=== PATIENT | female | born 1955 | race Caucasian/White ===

== ENCOUNTER 2024-03-30 09:03 | Outpatient (CLI) | payer MEDICARE, BC, SELFPAY ==
--- NOTE | 2024-03-30 09:39 | P.ANES_ITS ---
Anesthesia Charges Start Date/Time Anesthesia Start Date: 03/30/24 Anesthesia Start Time: 09:55 Stop Date/Time Anesthesia Stop Date: 03/30/24 Anesthesia Stop Time: 10:28 Summary Extremes of Age - Over 70 or under 1: [employer]
--- NOTE | 2024-03-30 11:30 | W.ANESCHARGE ---
Anesthesia Charges Start Date/Time Anesthesia Start Date: 03/30/24 Anesthesia Start Time: 09:55 Stop Date/Time Anesthesia Stop Date: 03/30/24 Anesthesia Stop Time: 10:28 Summary Extremes of Age - Over 70 or under 1: MDA
== END 2024-03-30 09:04 | disposition home or self-care (01) ==
LOC: OP CLINIC 09:07
PROVIDERS: PCP Family Medicine; Visit Provider Internal Medicine Gastroenterology
DX: Z12.11 Encounter for screening for malignant neoplasm of colon (principal); K51.50 Left sided colitis without complications; D12.2 Benign neoplasm of ascending colon; K51.30 Ulcerative (chronic) rectosigmoiditis without complications
CPT/HCPCS: 00811; 45380; 45385; 88305; 88342; 99100; J2405; J2704

== ENCOUNTER 2024-04-19 09:44 | Day surgery (SDC) | payer MEDICARE, BC, SELFPAY ==
[2024-04-19] VITALS (25 sets, daily range): BP systolic 90–132; BP diastolic 51–70; PULSE 55–78; RESP 14–20; TEMP 35.8–36.8; O2SAT 91–98; BMI 27.0
--- OUTSIDE RECORDS SUMMARY | 2024-04-19 09:47 | XMS_ITS | Clinical Summary ---
Author Organization [facility] Address [place], [place] [address] Care Team Providers Care Gymnastics Instructor Name Role Phone Yadira Larios Primary Care Provider Allergies Active Allergy Reactions Criticality Noted Date Comments Indomethacin Other - Describe In Comment Field 10/01/2022 vertigo Mesalamine Angioedema 08/04/2018 Medications pantoprazole (PROTONIX) 40 mg delayed-release tabletIndications:G astroesophageal reflux disease, unspecified whether esophagitis present Take 1 Tablet (40 mg) by mouth once daily. 90 Tablet 3 024 Active budesonide (Entocort EC) 3 mg capsuleIndications: Diarrhea, unspecified type,Ulcerative rectosigmoiditis with rectal bleeding (HC),Rectal bleeding,Hematochez ia Take 3 Capsules (9 mg) by mouth once daily in the morning. 90 Capsule 5 024 Active CHOLECALCIFEROL, VITAMIN D3, ORAL Take 1 Tablet by mouth once daily. Active acetaminophen (TYLENOL EXTRA STRGTH) 500 mg tabletIndications:C losed displaced comminuted fracture of shaft of left humerus, initial encounter Take 2 Tablets (1,000 mg) by mouth three times daily. Max acetaminophen dose: 4000mg in 24 hrs. Active ibuprofen (ADVIL; MOTRIN) 200 mg tabletIndications:C losed displaced comminuted fracture of shaft of left humerus, initial encounter Take 3 Tablets (600 mg) by mouth three times daily with meals. For 3 days then as needed for pain Active hydrOXYzine pamoate (VistariL) 25 mg capsuleIndications: Closed displaced comminuted fracture of shaft of left humerus, initial encounter Take 1 Capsule (25 mg) by mouth every 4 hours if needed (pain/nausea). 15 Capsule 025 Active traMADoL (ULTRAM) 50 mg tabletIndications:C losed displaced comminuted fracture of shaft of left humerus, initial encounter Take 1-2 Tablets (50-100 mg) by mouth 3 times daily if needed for Pain. Use 50 mg three times daily for 3 days with extra 50 mg three times daily as needed for pain (max 100 mg three times daily), then take 50-100 mg three times daily as needed for pain. 30 Tablet 025 Active ascorbic acid CR (VITAMIN C) 500 mg Extended-Release tablet Take 500 mg by mouth once daily. 2023 Discontinued (Pharmacist change per medication history (E-cancel not sent)) ergocalciferol, vitamin D2, (VITAMIN D2 ORAL) Take 1 Tablet by mouth once daily. 2023 Discontinued (Pharmacist change per medication history (E-cancel not sent)) predniSONE (DELTASONE) 10 mg tabletIndications:H ematochezia,Ulcerat goran rectosigmoiditis with rectal bleeding (HC) Take 1 Tablet (10 mg) by mouth once daily with a meal. take 4 tablets by oral route once daily for 2 weeks, 3 tablets per day for 1 week, 2 tablets per day for 1 week, 1 tablet per day for 1 week 98 Tablet 024 2023 Discontinued (Reorder (E-cancel not sent)) scopolamine 1mg over 3 days (TRANSDERM SCOP) patchIndications:Mo tion sickness, initial encounter Apply 1 Patch on dry, clean, hairless skin every 72 hours. 5 Patch 024 2023 Discontinued (*Med complete/Reg imen complete/Lev el of care change) psyllium (MetamuciL) 0.4 gram capsule Take 1 Capsule by mouth once daily. 2023 Discontinued (Pharmacist change per medication history (E-cancel not sent)) predniSONE (DELTASONE) 10 mg tabletIndications:U lcerative rectosigmoiditis with rectal bleeding (HC),Hematochezia Take 1 Tablet (10 mg) by mouth once daily with a meal. take 4 tablets by oral route once daily for 2 weeks, 3 tablets per day for 1 week, 2 tablets per day for 1 week, 1 tablet per day for 1 week 98 Tablet 024 2023 Discontinued (Pharmacist change per medication history (E-cancel not sent)) polyethylene glycol-electrolyte (GOLYTELY) 236-22.74-6.74 -5.86 gram suspensionIndicatio ns:Diarrhea, unspecified type,Ulcerative rectosigmoiditis with rectal bleeding (HC),Rectal bleeding Drink 2 liters (half the bottle) the day before colonoscopy and 2 liters (remaining prep) 6 hours prior to colonoscopy appointment. 4000 mL 024 2023 Discontinued (Pharmacist change per medication history (E-cancel not sent)) ascorbic acid, vitamin C, (VITAMIN C) 500 mg tablet Take 500 mg by mouth once daily. 2024 Discontinued (*Med complete/Reg imen complete/Lev el of care change) traMADoL (ULTRAM) 50 mg tabletIndications:C losed displaced comminuted fracture of shaft of left humerus, initial encounter Take 1-2 Tablets (50-100 mg) by mouth 3 times daily if needed for Pain. Use 50 mg three times daily for 3 days with extra 50 mg three times daily as needed for pain (max 100 mg three times daily), then take 50-100 mg three times daily as needed for pain. 30 Tablet 04/10/20 24 7:37 PM [facility] 2024 Discontinued (Reorder (E-cancel not sent)) hydrOXYzine pamoate (VistariL) 25 mg capsuleIndications: Closed displaced comminuted fracture of shaft of left humerus, initial encounter Take 1 Capsule (25 mg) by mouth every 4 hours if needed (pain/nausea). 15 Capsule 04/10/20 24 7:37 PM [facility] 024 2024 Discontinued (Reorder (E-cancel not sent)) Active Problems Problem Noted Date Diagnosed Date Displaced fracture of left humerus 04/08/2024 Squamous cell carcinoma of leg, left 10/26/2023 Age-related osteoporosis wit hout current pathological fracture 10/26/2023 Gastroesophageal reflux disease 10/26/2023 History of adenomatous polyp of colon 11/12/2017 Overview (02/17/2018): Overview: Found inside her appendix on 08/10/2016. 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 [address] [place] [address] Cristiana Cox RN Questions 04/17/2024 Telephone [facility] [address] [place] [address] Shilpa Meza, Preoperative Exam (addendum.) 04/16/2024 1:50 PM [facility] Office Visit [facility] [address] [place] [address] Shilpa Meza DO [facility] F/U; Preoperative Exam (shoulder fracture) 04/16/2024 Travel 04/13/2024 Hospital[facility] Telephone Encounter [facility] [address] [place] [address] Cristiana Cox, RN Pre Procedure 04/12/2024 Patient Outreach [facility] [address] [place] [address] Lili Mujica, HEIDY [facility] F/U; Primary RN Care Management (LACE 51) 04/12/2024 Travel 04/08/2024 7:17 AM [facility] - 04/10/2024 12:45 PM [facility] Hospital Encounter [facility] [address] [place] [address] Robert Damico MD McCosh, Yee Morales, DO Tolbert, Pancho Aranda, DO Hines, Phu Willis, YOLY Closed displaced comminuted fracture of shaft of left humerus, initial encounter (Primary Dx) Discharge Disposition: Home Self Care 04/08/2024 Travel 04/06/2024 8:55 AM [facility] - 04/06/2024 11:59 PM [facility] Hospital Encounter [facility] [address] [place] [address] Chronic ulcerative rectosigmoiditis without complications (HC) (Primary Dx) 04/06/2024 Travel 03/30/2024 9:15 AM [facility] Office Visit [facility] at [facility] [address] [place] [address] Pierce Spain MD 03/30/2024 Lab Requisition [facility] [phone] Pierce Spain MD 03/30/2024 Telephone [facility] [address] [place] [address] Cristiana Cox, RN Appointment 03/28/2024 Telephone [facility] [address] [place] [address] Pierce Spain MD Questions (Infusion ) 03/26/[address] [address] Pierce Spain MD Prior Authorization (budesonide (Entocort EC) 3 mg capsule APPROVED from 03/12/2024 until further notice. ) 03/23/[address] [address] Brittney Cee, AGENTS' RECORDS CLERK Appointment 03/22/2024 10:30 AM [facility] Office Visit [address] [place] [address] Pierce Spain MD Follow Up (Symptoms continue, prednisone helped for a short time) 03/22/2024 9:20 AM [facility] Ancillary Procedure [address] [place] [address] 03/22/[address] [address] Pierce Spain MD Appointment 03/22/[address] [address] Pierce Spain MD Medication Management 03/22/2024 Travel 03/17/2024 Travel 01/31/2024 8:30 AM CDT Orders Only [address] [address] [facility], [facility] 01/31/2024 8:00 AM CDT Ancillary Procedure [address] [address] 01/30/2024 Travel 01/30/2024 Orders Only [address] [address] Pierce Spain MD <No scans attached> from Last 3 Months Immunizations Name Administration Dates Next Due Influenza, IIV4 02/03/2023 Influenza, Inactivated AIIV4 (Age 65+ Years) Preserv Free 07/13/2022 Td (Age >=7 Years) 01/18/1989 Tdap 02/16/2008 Family History Medical History Relation Name Comments Parkinsonism Brother Good Health Daughter Osteoarthritis Half-Brother Multiple sclerosis Half-Sister 1 Good Health Half-Sister 2 Good Health Half-Sister 3 Cancer-breast Maternal Aunt Unknown Maternal Grandfather Unknown Maternal Grandmother Brain cancer Mother Multiple sclerosis Mother Asthma Paternal Grandfather Dementia Paternal Grandfather Unknown Paternal Grandmother Relation Name Status Comments Brother Alive Daughter Alive Father (Age 20) Gunshot wo und Half-Brother Alive Half-Sister 1 Alive Half-Sister 2 Alive Half-Sister 3 Alive Maternal Aunt Maternal Grandfather Maternal Grandmother Mother (Age 66) Brain tumo r Paternal Grandfather Paternal Grandmother Social History Tobacco Use Types Packs/Day Years Used Date Smoking Tobacco: Never Smokeless Tobacco: Never Tobacco Cessation:Counseling Given: Yes Alcohol Use Standard Drinks/Week Comments Yes 0 (1 standard drink = 0.6 oz pur e alcohol) occasionally C Utilities Answer Date Recorded Do you have trouble paying f or utilities (for example, heat, electricity, water, phone)? Yes 04/08/2024 PHQ-2 Answer Date Recorded PHQ-2 TOTAL SCORE 0 10/26/2023 Social Connections Answer Date Recorded Do you often feel lonely or isolated from those around you? 0 04/08/2024 Financial Resource Strain Answer Date R ecorded Difficulty of Paying Living Expenses 3 04/27/2023 Difficulty of Paying Living Expenses Not on file 04/27/2023 Food Insecurity Answer Date Recorded Do you worry your food will run out before you are able to buy more? 1 04/08/2024 Transportation Needs Answer Date Record ed Does lack of transportation keep you from medica l appointments? 1 04/08/2024 Does lack of transportation keep you from work, meetings or getting things that you need? 1 04/08/2024 Housing Stability Answer Date Recorded What is your housing situation today? 1 04/08/2024 Interpersonal Safety Answer Date Record ed Are you being hit, kicked, p ushed or yelled at (see row info)? No 04/08/2024 Interpersonal Safety Abuse 12 - 18 Not on file 04/08/2024 Interpersonal Safety Ambulatory Vulnerability No t on file 04/08/2024 Comments No Sex and Gender Information Value Date Recorded Sex Assigned at Female 04/08/2024 7:36 AM [facility] Legal Sex Female 5:23 AM [facility] Gender Identity Female 04/08/2024 7:36 AM [facility] Sexual Orientation Straight 04/08/2024 7: 36 AM [facility] Obstetrics History Last Filed Vital Signs Vital Sign Reading Time Taken Comments Blood Pressure 111/74 04/16/2024 2:07 PM [facility] Pulse 74 04/16/2024 2:07 PM [facility] Temperature 36.7 C (98.1 F) 04/10/2024 9:36 AM [facility] Respiratory Rate 18 04/10/2024 9:36 AM [facility] Oxygen Saturation 98% 04/16/2024 2:07 PM [facility] Inhaled Oxygen Concentration - - Weight 75.9 kg (167 lb 6.4 oz) 04/16/2024 2:07 P M [facility] Height 167.6 cm (5' 6) 04/08/2024 3:13 PM [facility] Body Mass Index 27.02 04/08/2024 3:13 PM [facility] Plan of Treatment Upcoming Encounters Date Type Department Care Team (Late st Contact Info) Description 04/24/2024 9:00 AM [facility] Appointment [facility] [address] [place] [address] 05/22/2024 9:00 AM [facility] [facility] Appointment [facility] [address] [place] [address] Health Maintenance Due Date Last Done Comments Hepatitis C screening for age 18-79 08/19/1971 Zoster (shingles) series for age 50+ (1 of 2) 1972 Pneumococcal series for age 50+ (1 of 1 - PCV) 08/19/2003 RSV vaccine for adults or (1 - Risk 60-74 years 1-dose series) 2013 Tetanus booster 02/15/2018 02/16/2008, 01/18/1989 COVID-19 vaccine series ( season) 2023 04/07/2021, 02/04/2021 Influenza for age 65+ 12/11/2023 02/03/2023, 023 BMI (ht and wt on same day) for age 18+ 10/25/2024 10/26/2023, 04/21/2020, 02/17/2018 Depression screening for age 12+ 10/25/2024 10/26/2023, 10/26/2023, 03/08/2023 Medicare Wellness for age 65+ 10/26/2024 10/26/2023, 10/01/2022 (Verified in Care Everywhere or Patient Record) Mammogram for age 45-75 03/22/2025 03/22/20 24, 03/17/2023 (Verified in Care Everywhere or Patient Record), 02/03/2021, Additional history exists Colonoscopy through age 75 03/30/202703/30, 03/30/2024, 03/30/2024, Additional history exists Lipids for age 45-75 10/25/2028 10/26/2023, 04/09/20 Tdap Completed 02/16/2008 DEXA/DXA scan for age 65+ Addressed 2021 (Verified in Care Everywhere or Patient Record) Overridden with the intention of not completing the topic Medical Devices Implanted Type Area Line Out Man Device Identifier Shelf Expiration Date Model / Serial / Lot Screw Bone 3.0x16mm Mini Headed - [id number] Implanted:Qty: 1 on 10/09/2019 by Priyank Bobby DPM at [facility] Right: Foot [employer] [id number] / / Explanted Type Area Line Out Man Device Identifier Shelf Expiration Date Model / Serial / Lot Screw Bone 2.5x14mm [place] Headed - [id number] Explanted:Qty: 1 on 10/09/2019 by Priyank Bobby DPM at [facility] Right: Foot [employer] [id number] / / Screw Bone 2.5x16mm Mini Headed - [id number] Explanted:Qty: 1 on 10/09/2019 by Priyank Bobby DPM at [facility] Right: Foot [employer] [id number] / / K-Wire 2.5mm Non-Thrd Diameter0.9 Mm - [id number] Explanted:Qty: 3 on 10/09/2019 by Priyank Bobby DPM at [facility] Right: Foot [employer] [id number] / / Wire Kirs .[id number] Smoothx6/Pk - [id number] Explanted:Qty: 1 on 10/09/2019 by Priyank Bobby DPM at [facility] / / Procedures Procedure Name Priority Date/Time Associated Diagnosis Comments CBC WITH AUTO DIFFERENTIAL STAT 04/08/2024 9:56 AM [facility] HEPATIC FUNCTION PANEL STAT 04/08/2024 9:56 AM [facility] BASIC METABOLIC PANEL STAT 04/08/2024 9:56 AM [facility] CBC WITH AUTO DIFFERENTIAL STAT 04/08/2024 9:[address] [address] HEAD BRAIN WO STAT 04/08/2024 8:20 AM [facility] XR SHOULDER 2 VIEWS LEFT STAT 04/08/2024 8:20 AM [facility] LAB TRACKING EVENT Routine 03/30/2024 10 :04 AM [facility] PATH TISSUE EXAM Routine 03/30/2024 10:0 4 AM [facility] COLONOSCOPY SCREENING Routine 03/30/2024 12:00 AM [facility] Diarrhea, unspecified type Ulcerative rectosigmoiditis with rectal bleeding (HC) Rectal bleeding QUANTIFERON -TB GOLD PLUS 1 TUBE (QUEST) Routine 03/22/2024 11:11 AM [facility] [facility] Diarrhea, unspecified type Ulcerative rectosigmoiditis with rectal bleeding (HC) Rectal bleeding Hematochezia HBSAG (HBS) Routine 03/22/2024 11:11 AM [facility] [facility] Diarrhea, unspecified type Ulcerative rectosigmoiditis with rectal bleeding (HC) Rectal bleeding Hematochezia Need for hepatitis B screening test ANTI HBS QUANT AHS Routine 03/22/2024 11 :11 AM [facility] [facility] Diarrhea, unspecified type Ulcerative rectosigmoiditis with rectal bleeding (HC) Rectal bleeding Hematochezia Need for hepatitis B screening test XR MAMMO RYAN BILAT SCREEN Routine 03/22/2024 9:38 AM [facility] Encounter for screening mammogram for malignant neoplasm of breast CT ABDOMEN PELVIS W Routine 01/31/2024 8 :23 AM CDT Ulcerative rectosigmoiditis with rectal bleeding (HC) LLQ pain CREATININE,ISTAT Routine 01/31/2024 8:02 AM CDT Observation or evaluation for suspected condition LIPID PANEL W REFLEX MEASURED LDL Routine 10/26/2023 1:59 PM CDT Screening cholesterol level from Last 3 Months or Most Recently Relevant to Health Maintenance Results * (ABNORMAL) CBC WITH AUTO DIFFERENTIAL (04/08/2024 9:56 AM [facility]) WHITE BLOOD COUNT 10.3 4.5 - 11.0 thou/cu mm 04/08/2024 10:02 AM [facility] RED BLOOD COUNT 4.00 4.00 - 5.20 mil/cu mm 04/08/2024 10:02 AM [facility] HEMOGLOBIN 12.4 12.0 - 16.0 g/dL 04/08/2024 10:02 AM [facility] HEMATOCRIT 36.7 33.0 - 51.0 % 04/08/2024 10:02 AM [facility] MCV 92 80 - 100 fL 04/08/2024 10:02 AM [facility] MCH 31.0 26.0 - 34.0 pg 04/08/2024 10:02 AM [facility] MCHC 33.8 32.0 - 36.0 g/dL 04/08/2024 10:02 AM [facility] RDW 12.3 11.5 - 15.5 % 04/08/2024 10:02 AM [facility] PLATELET COUNT 279 140 - 440 thou/cu mm 04/08/2024 10:02 AM [facility] MPV 8.6 6.5 - 11.0 fL 04/08/2024 10:02 AM [facility] % NEUT 78.5 % 04/08/2024 10:02 AM [facility] % LYMPH 11.5 % 04/08/2024 10:02 AM [facility] % MONO 9.7 % 04/08/2024 10:02 AM [facility] % EOS 0.2 % 04/08/2024 10:02 AM [facility] % BASO 0.1 % 04/08/2024 10:02 AM [facility] ABSOLUTE NEUTROPHILS 8.1(H) 1.7 - 7.0 thou/cu mm 04/08/2024 10:02 AM [facility] ABSOLUTE LYMPHOCYTES 1.2 0.9 - 2.9 thou/cu mm 04/08/2024 10:02 AM [facility] ABSOLUTE MONOCYTES 1.0(H) <0.9 thou/cu mm 04/08/2024 10:02 AM [facility] ABSOLUTE EOSINOPHILS 0.0 <0.5 thou/cu mm 04/08/2024 10:02 AM [facility] ABSOLUTE BASOPHILS 0.0 <0.3 thou/cu mm 04/08/2024 10:02 AM [facility] Blood BLOOD SPECIMEN / Unknown Venipuncture / Unknown 04/08/2024 9:56 AM [facility] 04/08/2024 9:59 AM [facility] us Robert Damico MD HEMATOLOGY Final Result [facility] [address] [place] [id number] * (ABNORMAL) HEPATIC FUNCTION PANEL (04/08/2024 9:56 AM [facility]) ALBUMIN 3.9(L) 4.0 - 4.9 g/dL 04/08/2024 10:19 AM [facility] PROTEIN,TOTAL 6.8 6.0 - 8.0 g/dL 04/08/2024 10:19 AM [facility] BILIRUBIN,TOTAL 0.5 0.0 - 1.2 mg/dL 04/08/2024 10:19 AM [facility] BILIRUBIN,DIRECT 0.2 0.0 - 0.2 mg/dL 04/08/2024 10:19 AM [facility] BILIRUBIN,INDIRE CT 0.3 0.2 - 0.8 mg/dL 04/08/2024 10:19 AM [facility] ALK PHOSPHATASE 69 35 - 104 IU/L 04/08/2024 10:19 AM [facility] ALT (SGPT) 11 10 - 35 IU/L 04/08/2024 10:19 AM [facility] AST (SGOT) 16 10 - 35 IU/L 04/08/2024 10:19 AM [facility] Blood BLOOD SPECIMEN / Unknown Venipuncture / Unknown 04/08/2024 9:56 AM [facility] 04/08/2024 9:59 AM [facility] us Robert Damico MD CHEMISTRY Final Result [facility] [address] [place] [address] * (ABNORMAL) BASIC METABOLIC PANEL (04/08/2024 9:56 AM [facility]) SODIUM 135(L) 136 - 145 mmol/L 04/08/2024 10:19 AM [facility] POTASSIUM 4.3 3.5 - 5.1 mmol/L 04/08/2024 10:19 AM [facility] CHLORIDE 101 98 - 107 mmol/L 04/08/2024 10:19 AM [facility] CO2,TOTAL 23 22 - 29 mmol/L 04/08/2024 10:19 AM [facility] ANION GAP 11 5 - 18 04/08/2024 10:19 AM [facility] GLUCOSE 118(H) 70 - 99 mg/dL 04/08/2024 10:19 AM [facility] CALCIUM 9.0 8.8 - 10.4 mg/dL 04/08/2024 10:19 AM [facility] Comment: Reference ranges for this test were updated on 02/14/2024 to reflect our healthy population more accurately. Reference range changes are not retroactively applied to results, but previous results using the same methodology can be interpreted in the context of the new reference range. BUN 9 8 - 23 mg/dL 04/08/2024 10:19 AM [facility] CREATININE 0.65 0.50 - 0.90 mg/dL 04/08/2024 10:19 AM [facility] BUN/CREAT RATIO 14 10 - 20 10:19 AM [facility] eGFR >90 >90 mL/min/1. 73m2 04/08/2024 10:19 AM [facility] Comment:As of 2021, eG FR is calculated by the CKD-EPI creatinine equation without race adjustment. eGFR can be influenced by muscle mass, exercise, and diet. The reported eGFR is an estimation only and is only applicable if the renal function is stable. Blood BLOOD SPECIMEN / Unknown Venipuncture / Unknown 04/08/2024 9:56 AM [facility] 04/08/2024 9:59 AM [facility] Robert Damico MD CHEMISTRY Final Result [facility] [address] [place] [address] * CT HEAD BRAIN WO (04/08/2024 8:20 AM [facility]) Anatomical Region Laterality Modality HEAD, BRAIN Computed Tomogra phy 04/08/2024 8:26 AM [facility] Impressions 04/08/2024 8:26 AM [facility] 1. No radiographic evidence of acute intracranial abnormalities. Please note that all CT scans at this facility use dose modulation, iterative reconstruction, and/or weight-based dosing when appropriate to reduce radiation dose to as low as reasonably achievable. Dictated by Sylvester Avina MD @ 04/08/2024 8:26:38 AM (Electronically Signed) Narrative 04/08/2024 8:26 AM [facility] For Patients: As a result of the 21st Century Cures Act, medical imaging exams and procedure reports are released immediately into your electronic medical record. You may view this report before your referring provider. If you have questions, please contact your health care provider. INDICATION: Headache. Trauma. TECHNIQUE: Non-contrast CT of the head is submitted. No comparisons. FINDINGS: The ventricles, sulci and gyri are of normal size, shape and contour. Midline structures are centrally located. No convincing evidence of intra- or extra-axial fluid collections. Procedure Note [employer], - 04/08/2024 For Patients: As a result of the Cures Act, medical imagingexams and procedure reports are released immediately into your electronicmedical record. You may view this report before your referring provider.If you have questions, please contact your health care provider. INDICATION: Headache. Trauma. TECHNIQUE: Non-contrast CT of the head is submitted. No comparisons. FINDINGS: The ventricles, sulci and gyri are of normal size, shape and contour.Midline structures are centrally located. No convincing evidence ofintra- or extra-axial fluid collections. IMPRESSION: 1. No radiographic evidence of acute intracranial abnormalities. Please note that all CT scans at this facility use dose modulation,iterative reconstruction, and/or weight-based dosing when appropriate toreduce radiation dose to as low as reasonably achievable. Dictated by Sylvester Avina MD @ 04/08/2024 8:26:38 AM (Electronically Signed) Sohail Graham MD CT Final R esult * XR SHOULDER 2 VIEWS LEFT (04/08/2024 8:20 AM [facility]) Anatomical Region Laterality Modality SHOULDERS, SHOULDER L Digital Ra diography 04/08/2024 8:29 AM [facility] Impressions 04/08/2024 8:29 AM [facility] Displaced humeral neck fracture. Dictated by Dave Marinelli MD @ 04/08/2024 8:29:35 AM (Electronically Signed) Narrative 04/08/2024 8:29 AM [facility] For Patients: As a result of the Cures Act, medical imaging exams and procedure reports are released immediately into your electronic medical record. You may view this report before your referring provider. If you have questions, please contact your health care provider. INDICATION: Trauma. TECHNIQUE: Left shoulder two views. COMPARISON: None. FINDINGS: Comminuted displaced fracture of the left humeral neck with near complete width anterior and medial displacement of the distal humerus relative to the humeral head. No additional evidence of fracture. Degenerative changes of the acromioclavicular joint. No radiopaque foreign body evident in the soft tissues. Procedure Note Dave Marinelli, DO - 04/08/2024 For Patients: As a result of the Cures Act, medical imagingexams and procedure reports are released immediately into your electronicmedical record. You may view this report before your referring provider.If you have questions, please contact your health care provider. INDICATION: Trauma. TECHNIQUE: Left shoulder two views. COMPARISON: None. FINDINGS: Comminuted displaced fracture of the left humeral neck with near completewidth anterior and medial displacement of the distal humerus relative tothe humeral head. No additional evidence of fracture. Degenerative changesof the acromioclavicular joint. No radiopaque foreign body evident in thesoft tissues. IMPRESSION: Displaced humeral neck fracture. Dictated by Dave Marinelli MD @ 04/08/2024 8:29:35 AM (Electronically Signed) us Sohail Graham MD GENERAL IMAGING Final R esult * LAB TRACKING EVENT (03/30/2024 10:04 AM [facility]) Other (Other) Client Collect / Unknown 03/30/2024 10:04 AM [facility] 03/30/2024 10:18 PM [facility] us Pierce Spain MD LAB BILL ONLY Final Res ult [facility] [address] [place] [address], * PATH TISSUE EXAM (03/30/2024 10:04 AM [facility]) Case Report Pathology Report Case: [id number] Authorizing Provider: Pierce Spain MD Collected: 03/30/2024 1004 Ordering Location: [facility] Received: 04/02/2024 0740 Pathologist: Dave Valle MD Specimens: A) - Ascending Colon Polyp B) - Ascending Colon Biopsy C) - Transverse Colon Polyp D) - Descending Colon Polyp E) - Recto Sigmoid 04/05/2024 11:52 AM [facility] Amendment 04/05/2024 - Report updated to incorporate CMV immunohistochemistry, see final diagnosis. 04/05/2024 11:52 AM [facility] Final Diagnosis A) COLON, ASCENDING, POLYPECTOMY: 1. Tubular adenoma 2. Negative for high grade dysplasia 3. Per the colonoscopy report: a. Polyp size: 4 mm b. Resection: Complete c. Retrieval: Complete B) COLON, ASCENDING, BIOPSY: 1. Colonic mucosa with no diagnostic abnormalities 2. Negative for microscopic, active, and chronic colitis 3. Negative for dysplasia C) COLON, TRANSVERSE, BIOPSY: 1. Colonic mucosa with no diagnostic abnormalities 2. Negative for microscopic, active, and chronic colitis 3. Negative for dysplasia D) COLON, DESCENDING, BIOPSY: 1. Colonic mucosa with no diagnostic abnormalities 2. Negative for microscopic, active, and chronic colitis 3. Negative for dysplasia E) COLON, RECTOSIGMOID, BIOPSY: 1. Mild to moderately active chronic colitis consistent with ulcerative colitis 2. Negative for dysplasia 3. Cytomegalovirus (CMV) immunohistochemical stains (performed on blocks E1 and E2): Negative 04/05/2024 11:52 AM [facility] Amendment electronically signed by Omega Quan MD on 04/05/2024 at 11:52 AM Clinical Information 68-year-old female undergoes high risk colon cancer surveillance for history of left-sided ulcerative colitis of 8 (or more) years duration. On exam, a 4 mm polyp was identified in the ascending colon. Inflammation was found from the anus to the sigmoid colon, which was graded as Petty score 2 (moderate disease). The exam was otherwise normal. 04/05/2024 11:52 AM [facility] Gross Description A) Received in formalin is a mon mucosal fragment measuring 4 mm in greatest dimension, which is entirely submitted in one cassette. It is labeled with the patient's name and designated ascending colon polyp. B) Received in formalin are 7 mon mucosal fragments ranging from 2 mm to 5 mm in greatest dimension, which are entirely submitted in one cassette. It is labeled with the patient's name and designated ascending colon. C) Received in formalin are 8 mon mucosal fragments averaging 2 mm in greatest dimension, which are entirely submitted in one cassette. It is labeled with the patient's name and designated transverse colon. D) Received in formalin are 7 mon mucosal fragments averaging 3 mm in greatest dimension, which are entirely submitted in one cassette. It is labeled with the patient's name and designated descending colon. E) Received in formalin are 12 mon mucosal fragments averaging 2 mm in greatest dimension, which are entirely submitted in 2 cassettes. It is labeled with the patient's name and designated rectosigmoid colon. Vinay Starks 04/02/2024 7:58 AM 04/05/2024 11:52 AM [facility] Microscopic Description The final diagnosis is based on microscopic examination of appropriate sections of all specimens. 04/05/2024 11:52 AM [facility] Additional Information Interpreted at [facility] - [address], [place] [address] Immunohistochemistry controls were reviewed and approved by the pathologist during this examination. 04/05/2024 11:52 AM [facility] Other SPECIMEN FROM COLON / Unknown 03/30/2024 10:04 AM [facility] 04/02/2024 7:40 AM [facility] Specimen (specimen) (Ascending Colon Biopsy) 03/30/2024 10:04 AM [facility] 04/02/2024 7:40 AM [facility] Specimen (specimen) (Transverse Colon Polyp) 03/30/2024 10:04 AM [facility] 04/02/2024 7:40 AM [facility] Specimen (specimen) (Descending Colon Polyp) 03/30/2024 10:04 AM [facility] 04/02/2024 7:40 AM [facility] Specimen (specimen) SPECIMEN FROM COLON / Unknown 03/30/2024 10:04 AM [facility] 04/02/2024 7:40 AM [facility] Pierce Spain MD PATHOLOGY/CYTOLOGY Edited Result - Final [facility] [address] [address], [place] * COLONOSCOPY SCREENING (03/30/2024 12:00 AM [facility]) Pierce Spain MD GI PROCEDURE ORD Edited R esult - Final * QUANTIFERON??-TB GOLD PLUS 1 TUBE ([facility]) (03/22/2024 11:11 AM [facility]) QUANTIFERON(R)-T B GOLD PLUS, 1 TUBE NEGATIVE NEGATIVE [facility] Comment: Negative test result. M. tuberculosis complex infection unlikely. NIL 0.03 IU/mL [facility] MITOGEN-NIL 8.18 IU/mL [facility] TB1-NIL 0.02 IU/mL [facility] TB2-NIL 0.01 IU/mL [facility] Comment: The Nil tube value reflects the background interferon gamma immune response of the patient's blood sample. This value has been subtracted from the patient's displayed TB and Mitogen results. Lower than expected results with the Mitogen tube prevent false-negative Quantiferon readings by detecting a patient with a potential immune suppressive condition and/or suboptimal pre-analytical specimen handling. The TB1 Antigen tube is coated with the M. tuberculosis-specific antigens designed to elicit responses from TB antigen primed CD4+ helper T-lymphocytes. The TB2 Antigen tube is coated with the M. tuberculosis-specific antigens designed to elicit responses from TB antigen primed CD4+ helper and CD8+ cytotoxic T-lymphocytes. For additional information, please refer to https://education.[place]/faq/NZO047 (This link is being provided for informational/ educational purposes only.) Blood BLOOD SPECIMEN / Unknown 03/22/2024 11:11 AM [facility] 03/22/2024 11:12 AM [facility] Pierce Spain MD SEND OUTS Final Res ult [facility] [address] [place] [address], [facility] [address] [place] [address] * HBSAG (HBS) (03/22/2024 11:11 AM [facility]) HEPATITIS B SURFACE ANTIGEN NON-REACTI VE NON-REACTI VE [facility] Comment: For additional information, please refer to http://CAXA.[place]/faq/NGZ515 (This link is being provided for informational/ educational purposes only.) Blood BLOOD SPECIMEN / Unknown 03/22/2024 11:11 AM [facility] 03/22/2024 11:12 AM [facility] Pierce Spain MD SEND OUTS Final Res ult Performing Organization Address [facility]/ZIP Co de Phone Number [facility] [address] [facility] [place] [address], [place] [phone] [facility] [address] [place] [address] * (ABNORMAL) ANTI HBS QUANT AHS (03/22/2024 11:11 AM [facility]) HEPATITIS B SURFACE AB IMMUNITY, QN <5(L) > OR = 10 mIU/mL [facility] Comment: Patient does not have immunity to hepatitis B virus. For additional information, please refer to http://CAXA.[place]/faq/GCW493 (This link is being provided for informational/ educational purposes only). Blood BLOOD SPECIMEN / Unknown 03/22/2024 11:11 AM [facility] 03/22/2024 11:12 AM [facility] Pierce Spain MD SEND OUTS Final Res ult [facility] [address] [facility] [address], [place] [phone] [facility] [facility] [address] [place] [address] * XR MAMMO RYAN BILAT SCREEN (03/22/2024 9:38 AM [facility]) Anatomical Region Laterality Modality BREASTS, Breast Left, Breast Right Bilateral Mammography Impressions 03/22/2024 3:34 PM [facility] There is no radiographic evidence for malignancy. Recommend annual mammograms. MAMMOGRAM ASSESSMENT: ACR 1 Negative PATIENTS: You will also receive a letter with your examination results in an easy to read format. If you have questions about your results, please contact your referring provider. Narrative 03/22/2024 3:34 PM [facility] For Patients: As a result of the Cures Act, medical imaging exams and procedure reports are released immediately into your electronic medical record. You may view this report before your referring provider. If you have questions, please contact your health care provider. XR MAMMO RYAN BILAT SCREEN [[id number]] CLINICAL HISTORY: This is an asymptomatic 68 y.o. patient. INDICATION FOR EXAM: Mammogram Screening. TECHNIQUE: CC & MLO views were obtained. This study was evaluated with the assistance of Computer-Aided Detection. Breast Tomosynthesis was used in interpretation. COMPARISON FILM: Yes 02/03/21 [facility] 11/14/19 [facility] FINDINGS: The breasts are heterogeneously dense, which may obscure small masses. There are no dominant masses, suspicious micro calcifications or areas of architectural distortion. us Yadira Lis Larios DO MAMMO Final Result * CT ABDOMEN PELVIS W (01/31/2024 8:23 AM CDT) Anatomical Region Laterality Modality Abdomen, Pelvis, AORTA, LIVER, SPLEEN Computed Tomography 02/01/2024 11:5 6 AM CDT Impressions 02/01/2024 11:56 AM CDT No acute findings and no change. Please note that all CT scans at this facility use dose modulation, iterative reconstruction, and/or weight-based dosing when appropriate to reduce radiation dose to as low as reasonably achievable. Dictated by Weston Santana MD @ 02/01/2024 11:56:25 AM (Electronically Signed) Narrative 02/01/2024 11:56 AM CDT For Patients: As a result of the Cures Act, medical imaging exams and procedure reports are released immediately into your electronic medical record. You may view this report before your referring provider. If you have questions, please contact your health care provider. INDICATION: Ulcerative rectosigmoiditis with rectal bleeding, left lower quadrant abdominal pain TECHNIQUE: CT abdomen and pelvis acquired with 100 cc Omnipaque 350 IV contrast. COMPARISON: 12/20/[address] FINDINGS: Lower chest: Unremarkable. Liver: Several benign cysts. Gallbladder and bile ducts: Unremarkable. No stones or inflammation. No biliary dilatation. Pancreas: Unremarkable. No mass or inflammation. Spleen: Unremarkable. Normal in size. No masses. Adrenal glands: Unremarkable. No nodules. Kidneys: Unremarkable. No masses, stones, or hydronephrosis. GI tract: Unremarkable. Normal in caliber. No sign of mass or inflammation. Appendectomy. Vasculature: Unremarkable. Mesenteric arteries are patent. Lymph nodes: No lymphadenopathy. Omentum/Peritoneum/Abdominal Wall: Unremarkable. No sign of mass or infiltration. No free air or significant free fluid. Pelvis: Hysterectomy. Bones: Unremarkable for age. Procedure Note Weston Santana MD - 02/01/2024 For Patients: As a result of the Cures Act, medical imagingexams and procedure reports are released immediately into your electronicmedical record. You may view this report before your referring provider.If you have questions, please contact your health care provider. INDICATION: Ulcerative rectosigmoiditis with rectal bleeding, left lower quadrantabdominal pain TECHNIQUE: CT abdomen and pelvis acquired with 100 cc Omnipaque 350 IV contrast. COMPARISON: 12/20/[address] FINDINGS: Lower chest: Unremarkable. Liver: Several benign cysts. Gallbladder and bile ducts: Unremarkable. No stones or inflammation. Nobiliary dilatation. Pancreas: Unremarkable. No mass or inflammation. Spleen: Unremarkable. Normal in size. No masses. Adrenal glands: Unremarkable. No nodules. Kidneys: Unremarkable. No masses, stones, or hydronephrosis. GI tract: Unremarkable. Normal in caliber. No sign of mass orinflammation. Appendectomy. Vasculature: Unremarkable. Mesenteric arteries are patent. Lymph nodes: No lymphadenopathy. Omentum/Peritoneum/Abdominal Wall: Unremarkable. No sign of mass orinfiltration. No free air or significant free fluid. Pelvis: Hysterectomy. Bones: Unremarkable for age. IMPRESSION: No acute findings and no change. Please note that all CT scans at this facility use dose modulation,iterative reconstruction, and/or weight-based dosing when appropriate toreduce radiation dose to as low as reasonably achievable. Dictated by Weston Santana MD @ 02/01/2024 11:56:25 AM (Electronically Signed) Pierce Spain MD CT Final Res ult * POCT Creatinine (01/31/2024 8:02 AM CDT) Pathologist [facility] POCT,CREATININ E, ISTAT 0.9 0.6 - 1.3 mg/dL [facility] Blood BLOOD SPECIMEN / Unknown 01/31/2024 8:02 AM CDT 01/31/2024 8:03 AM CDT Pierce Spain MD CHEMISTRY Final Res ult Performing Organization Address City/State/[facility] Co de Phone Number [facility] [address] [place] [address], [facility] [address] [place] [address] * (ABNORMAL) LIPID PANEL W REFLEX MEASURED LDL (10/26/2023 1:59 PM CDT) [facility] CHOLESTEROL,TOTAL 246(H) 100 - 199 mg/dL 10/27/2023 3:58 AM CDT [facility] Comment: Cholesterol, Total Reference Ranges Desirable <200 mg/dL Borderline 200-239 mg/dL High >=240 mg/dL TRIGLYCERIDES 88 <150 mg/dL 10/27/2023 3:58 AM CDT [facility] HDL CHOLESTEROL 69 >40 mg/dL 3:58 AM CDT [facility] NON-HDL CHOLESTEROL 177(H) <145 mg/dl 10/27/2023 3:58 AM CDT [facility] CHOL/HDL RATIO 3.57 <4.50 10/27/2023 3:58 AM CDT [facility] LDL CHOLESTEROL 159(H) <=130 mg/dL 10/27/2023 3:58 AM CDT [facility] VLDL CHOLESTEROL 18 <=30 mg/dL 10/27/2023 3:58 AM CDT [facility] PROVIDER ORDERED STATUS RANDOM 10/27/2023 3:58 AM CDT [facility] Blood BLOOD SPECIMEN / Unknown Venipuncture / Unknown 10/26/2023 1:59 PM CDT 10/26/2023 1:59 PM CDT us Yadira Larios DO CHEMISTRY Final Result [facility] [address] [place] [id number], from Last 3 Months or Most Recently Relevant to Health Maintenance Insurance [place] MEDICARE PART B HB ONLY [place] ONLY MEDICARE PART A HB ONLY [id number] [place] [id number] Advance Directives * Full Code (Latest Code Status on File) Date Activated Date Inactivated Comments 04/08/2024 3:14 PM 04/10/2024 3:01 PM Question Answer Comments Code Status Discussion: Reviewed Preferences * Full Code Date Activated Date Inactivated Comments 03/04/2023 8:06 AM 03/04/2023 12:50 PM Question Answer Comments Code Status Discussion: Reviewed Preferences * Full Code Date Activated Date Inactivated Comments 10/09/2019 9:11 AM 10/09/2019 12:16 PM Question Answer Comments Code Status Discussion: Not Discussed * Full Code Date Activated Date Inactivated Comments 10/09/2019 6:32 AM 10/09/2019 9:11 AM Question Answer Comments Code Status Discussion: Not Discussed * Full Code Date Activated Date Inactivated Comments 08/24/2019 5:54 AM 08/24/2019 11:47 AM Care Teams Gymnastics Instructor Relationship Specialty Start Date End Date Yadira Larios DO [address] [place] [address] PCP - General Family Practice 03/08/23
--- OUTSIDE RECORDS SUMMARY | 2024-04-19 09:48 | XMS_ITS | Encounter Summary ---
Author Organization [facility] Address [address] [place] [address] Care Team Providers Care Reed Or Wind Instrument Repairer Name Role Phone Margarita Castillo P.A.-C. Primary Care Provider [phone]- [phone] Reason for Referral * Outpatient (Routine) - Authorized Specialty Diagnoses / Procedures Referred By Gerson carrion Referred To Contact Margarita Castillo P.A.-C. [address] [place] [phone] Phone: tel: fax: [facility] Referral ID Status Reason Start Date Expiration Date V isits Requested Visits Authorized [id number] Authorized 04/17/2024 10/17/2025 1 1 Scheduling Instructions Nurse AWV Do not schedule prior to due date to ensure insurance coverage Visit: Medicare Annual Wellness due on 10/03/2023. DOCTOR * Outpatient (Routine) - Authorized Specialty Diagnoses / Procedures Referred By Gerson carrion Referred To Contact Diagnoses Screening Mammogram Breast Cancer Procedures BI Breast Screening Bilateral with Tomosynthesis Margarita Castillo P.A.-C. [address] [place] [phone] Phone: tel: fax: [facility] Region Referral ID Status Reason Start Date Expiration Date V isits Requested Visits Authorized [id number] Authorized 04/17/2024 04/17/2025 1 1 DOCTOR Encounter Details Date Type Department Care Team (Late st Contact Info) Description 04/17/2024 Orders Only [facility] Margarita Castillo P.A.-C. [address] [facility] [place] [address] Screening Mammogram Breast Cancer Social History Tobacco Use Types Packs/Day Years Used Date Smoking Tobacco: Former Cigarettes 0.5 15 Smokeless Tobacco: Never Alcohol Use Standard Drinks/Week Comments Yes 3 (1 standard drink = 0.6 oz pur e alcohol) Humiliation, Afraid, Rape, and Kick questionnair e Answer Date Recorded Within the last year, have y ou been afraid of your partner or ex-partner? No 09/29/2022 Within the last year, have y ou been humiliated or emotionally abused in other ways by your partner or ex-partner? No Within the last year, have y ou been kicked, hit, slapped, or otherwise physically hurt by your partner or ex-partner? No 09/29/2022 Within the last year, have y ou been raped or forced to have any kind of sexual activity by your partner or ex-partner? No 09/29/2022 Social Connection and Isolat ion Panel [NHANES] Answer Date Recorded In a typical week, how many times do you talk on the phone with family, friends, or neighbors? More than three times a week 08/02/2020 How often do you get togethe r with friends or relatives? More than three times a week 08/02/2020 How often do you attend chur ch or orthodoxy services? 1 to 4 times per year 08/02/2020 Do you belong to any clubs o r organizations such as latter day groups, unions, fraternal or athletic groups, or school groups? No 08/02/2020 How often do you attend meet ings of the clubs or organizations you belong to? Never 08/02/2020 Are you , , di vorced, , never , or living with a partner? 08/02/2020 AUDIT-C Answer Date Recorded Q1: How often do you have a drink containing alc ohol? 2-4 times a month 08/02/2020 Q2: How many drinks containi ng alcohol do you have on a typical day when you are drinking? 1 or 2 08/02/2020 Q3: How often do you have si x or more drinks on one occasion? Less than monthly 08/02/2020 Overall Financial Resource Strain (CARDIA) Answe r Date Recorded How hard is it for you to pa y for the very basics like food, housing, medical care, and heating? Not hard at all 09/29/2022 PHQ-2 Answer Date Recorded PHQ-2 Score 0 07/12/2022 [facility] - Occupational Stress Questionnaire Answer Date Recorded Do you feel stress - tense, restless, nervous, or anxious, or unable to sleep at night because your mind is troubled all the time - these days? Not at all 08/02/2020 Exercise Vital Sign Answer Date Recorde d On average, how many days pe r week do you engage in moderate to strenuous exercise (like a brisk walk)? 5 days 09/29/2022 On average, how many minutes do you engage in exercise at this level? 60 min 09/29/2022 Hunger Vital Sign Answer Date Recorded Within the past 12 months, y ou worried that your food would run out before you got the money to buy more. Never true 09/30/19 23 Within the past 12 months, t he food you bought just didn't last and you didn't have money to get more. Never true 09/29/2022 PRAPARE - Transportation Answer Date Re corded In the past 12 months, has l ack of transportation kept you from medical appointments or from getting medications? No 09/10 In the past 12 months, has l ack of transportation kept you from meetings, work, or from getting things needed for daily living? No 09/29/2022 Depression Answer Date Recor ded PHQ-9 Total Score (max 27) 1 02/02 Nutrition Answer Date Recorded Nutrition: EVOO Fat Source Unknown 09/29 On average, how many serving s of fruits and vegetables do you eat per day (serving size is equal to 1 cup or approximately the size of a tennis ball)? 3-5 09/29/2022 Dental Answer Date Recorded Dental: Regular Dentist Yes 04/08/20 Employment Answer Date Recorded Employment status Unemployed/not in th e paid workforce and NOT seeking employment 09/29/2022 Housing Stability Answer Date Recorded What is your living situation today? I have a [facility] place to live 09/29/2022 Education Answer Date Recorded What is the highest level of school you have completed or the highest degree you have received? Associate degree: occupational, technical, or vocational program 11/10/2018 Comments No Sex and Gender Information Value Date Recorded Sex Assigned at Female 03/17/2017 12:42 PM BABY DOCTOR Legal Sex Female 9:11 PM BABY DOCTOR Gender Identity Female 03/17/2017 12:42 PM BABY DOCTOR Sexual Orientation Straight 03/17/2017 12 :42 PM BABY DOCTOR documented as of this encounter Plan of Treatment Scheduled Orders Name Type Priority Associated Diagnoses Order Schedule BI Breast Screening Bilateral with Tomosynthesis Imaging RAD - Routine (most inpatients and all outpatients) Screening Mammogram Breast Cancer Expected: 05/17/2024, Expires: 10/14/2024 Scheduled Referrals Name Type Priority Associated Diagnoses Orde r Schedule Primary Care nurse visit (clinic) - [facility]; Medicare Annual Wellness Outpatient Referral Routine Expected: 05/15/2024, Expires: 10/14/2024 documented as of this encounter Visit Diagnoses Diagnosis Screening Mammogram Breast Cancer documented in this encounter Additional Health Concerns Assessment Noted Time PHQ-9 Depression Total Score: 1 02/03/20 3:22 PM CDT documented as of this encounter Care Teams Reed Or Wind Instrument Repairer Relationship Specialty Start Date End Date Margarita Castillo P.A.-C. [address] [place] [phone] PCP - General Family Medicine 01/26/21 documented as of this encounter
--- OUTSIDE RECORDS SUMMARY | 2024-04-19 09:48 | XMS_ITS | Clinical Summary ---
Author Organization [facility] Address [address] [place] [address] Care Team Providers Care Puncher And Fastener Name Role Phone Margarita Castillo P.A.-C. Primary Care Provider +1- [phone] Source Comments Patient records contain information from all sites at [facility]. For routine questions regarding patient records, call [phone] during business hours, M-F 8:00 AM - 5:00 PM Central Time. Record requests for emergency care only can be directed to [phone] at any time.[facility] Allergies Active Allergy Reactions Criticality Noted Date Comments Indomethacin Other (see comments) 10/01/2022 vertigo Mesalamine Other (see comments) 10/17/2009 Other reaction(s): Angioedema Medications * This document contains information received from the source organization and may not represent a complete record from that organization. ascorbic acid, vitamin C, (VITAMIN C) 500 mg CR tablet Take 500 mg by mouth daily. Active gabapentin (NEURONTIN) 300 mg capsuleIndicati ons:Nausea TAKE 1 CAPSULE DAILY 90 capsule 3 10/08/2022 Active pantoprazole (PROTONIX) 40 mg EC tablet Take 1 tablet (40 mg total) by mouth daily. 90 tablet 3 11/10/2022 Active calcium-magnesi um-zinc 333-133-5 mg tablet Take 1 tablet by mouth. 03/08/2023 Active Active Problems Problem Noted Date Diagnosed Date Osteoporosis 01/18/2022 Overview (01/18/2022): -DEXA scan 12/31/2021 reveals T-score of -3.6 spine. 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 Screening Mammogram Breast Cancer from Last 3 Months Immunizations Name Administration Dates Next Due Influenza, Quadrivalent, Adj uvanted, Preservative Free 07/13/2022 Pneumococcal, Unspecified 10/14/2022(Deferred: P atient decision) RZV (SHINGRIX) 10/14/2022(Deferred: Patient dec isi) SARS-COV-2 (COVID-19) - PFIZ ER BIVALENT TS(Discontinued)(12 YEARS OR OLDER) 10/14/2022(Deferred: Patient decision) Td (Adult), adsorbed 01/18/1989 Tdap 10/14/2022(Deferred: Patient decision),02/16/2008 Family History Medical History Relation Name Comments Osteoarthritis Brother 1 peter Tremor Brother 2 mercedes No Known Problems Daughter Elfego MVA - Motor vehicle accident Father No Known Problems Maternal Grandfather No Known Problems Maternal Grandmother Brain Tumor Mother Multiple sclerosis Mother Breast cancer Mother's Sister Asthma Paternal Grandfather Multiple sclerosis Sister 1 cris Spinal stenosis Sister 2 smita No Known Problems Sister 3 edilson Relation Name Status Comments Brother 1 bro Alive Brother 2 mercedes Alive MS or Parkinson s Daughter Elfego Alive Father (Age 21) GSW Maternal Grandfather Maternal Grandmother Mother (Age 66) Cause of d eath Brain tumor Mother's Sister Paternal Grandfather Sister 1 cris Alive Sister 2 smita Alive Sister 3 edilson Alive Social History Tobacco Use Types Packs/Day Years Used Date Smoking Tobacco: Former Cigarettes 0.5 15 Smokeless Tobacco: Never Tobacco Cessation:Counseling Given: Not Answered Alcohol Use Standard Drinks/Week Comments Yes 3 [...] often do you attend chur ch or sabianism services? 1 to 4 times per year 08/02/2020 Do you belong to any clubs o r organizations such as congregational groups, unions, fraternal or athletic groups, or [...] Answer Date Recorded PHQ-2 Score 0 07/12/2022 [facility] - Occupational Stress Questionnaire Answer Date Recorded [...] Answer Date Recorded Employment status Unemployed/not in e paid workforce and NOT seeking employment 09/29/2022 Housing Stability Answer Date Recorded What is your living situation today? I have a [facility] place to live 09/29/2022 Education Answer Date Recorded What is the highest level of school you have completed or the highest degree you have received? Associate degree: occupational, technical, or vocational program 11/10/2018 Comments No Sex and Gender Information Value Date Recorded Sex Assigned at Female 03/17/2017 12:42 PM V/STOL LANDING SIGNAL OFFICER Legal Sex Female 9:11 PM V/STOL LANDING SIGNAL OFFICER Gender Identity Female 03/17/2017 12:42 PM V/STOL LANDING SIGNAL OFFICER Sexual Orientation Straight 03/17/2017 12 :42 PM V/STOL LANDING SIGNAL OFFICER Last Filed Vital Signs Vital Sign Reading Time Taken Comments Blood Pressure 139/81 10/14/2022 1:41 PM CDT Pulse 75 10/14/2022 1:41 PM CDT Temperature 35.8 C (96.5 F) 10/14/2022 1:41 PM CDT Respiratory Rate 18 10/14/2022 1:41 PM CDT Oxygen Saturation 100% 02/17/2021 3:31 PM V/STOL LANDING SIGNAL OFFICER Inhaled Oxygen Concentration - - Weight 78.8 kg (173 lb 9.8 oz) 10/14/2022 1:41 P M CDT Height 167.5 cm (5' 5.95) 10/14/2022 1:41 PM CD T Body Mass Index 28.07 10/14/2022 1:41 PM CDT Plan of Treatment Health Maintenance Due Date Last Done Comments CT Colonography 1955 Cologuard 1955 Hepatitis C Screening 1955 Pneumococcal vaccine (50+ years) (1 of 1 - PCV) 08/19/2003 Zoster Vaccines (1 of 2) 08/19/2003 DTaP,Tdap,and Td Vaccines (2 - Td or Tdap) 02/15/2018 02/16/2008, 01/18/1989 Visit: Medicare Annual Wellness 10/03/2023 10/01/2022 Visit: Annual, age 65+ (or Medicare and <65) 10/15/2023 10/14/2022 COVID-19 Vaccine ( - season) 2023 04/07/2021, 02/04/2021 Influenza Vaccine (#1) 2024 02/03/2023, 2022 Mammogram 03/17/2024 03/17/2023, 12/11, 02/03/2021, Additional history exists Depression Screening (Annual PHQ-2) 04/11/2024 Fall Risk Screen (Annual) 04/11/2024 Fasting Glucose for Diabetes Screening 01/27/2026 01/27/2023, 04/09/2020, 09/18/2019, Additional history exists Bone Density Scan Monitoring 12/31/2026 12/31/2021 Colonoscopy 03/30/2027 03/30/2024, 11/12/2020, 02/17/2021, Additional history exists Colorectal Cancer Surveillance 03/30/2027 Bone Density Scan (Osteoporosis Screen) Discontinued 12/31/2021 IPV Vaccines Aged Out No longer eligi ble based on patient's age to complete this topic Medical Devices Implanted Type Area Head Of Transport Logistics Device Identifier Shelf Expiration Date Model / Serial / Lot Hardware E.G. Pins/Screws/Dmitry s-10/13/2008 Implanted:10/13 (Quantity not on file) Hardware e.g. pins/screws /rods Right: Tibia Description:C TREAT TIBIAL S HAFT FX, INTRAMED IMPLANT Uretex Sling - [place] [id number] Implanted:Qty: 1 on 08/08/2006 Mesh or Patch Other/Legacy - See Implant Description CParvinBard Description:Device Manufactu [facility] Patient Care Division. Body Location - Other. Not Applicable. Device Status Text - [id number]. Bead Block Microsphere [id number] - [place] [id number] Implanted:Qty: 4 on 08/09/2006 Vascular Other [employer] Medical Description:Device Manufactu rer - [employer]. Device Status Text - [id number]. Procedures Procedure Name Priority Date/Time Associated Diagnosis Comments BI BREAST SCREENING BILATERAL WITH TOMOSYNTHESIS RAD - Routine (most inpatients and all outpatients) 03/17/2023 11:46 AM V/STOL LANDING SIGNAL OFFICER Screening Mammogram Breast Cancer GLUCOSE, FASTING, S/P Routine 01/27/2023 8:51 AM CDT Screening Examination Diabetes Mellitus BMD BONE DENSITY SPINE HIPS RAD - Routine (most inpatients and all outpatients) 12/31/2021 3:41 PM CDT Deficiency Estrogen Post Menopausal COLONOSCOPY Routine 02/17/2021 2:09 PM V/STOL LANDING SIGNAL OFFICER Screening Cancer Colon from Last 3 Months or Most Recently Relevant to Health Maintenance Results * BI Breast Screening Bilateral with Tomosynthesis (03/17/2023 11:46 AM V/STOL LANDING SIGNAL OFFICER) Anatomical Region Laterality Modality Breast, Breast Imaging RST L OS, Breast Imaging ARZ LOS, Breast Imaging FLA LOS Bilateral Mammography 03/17/2023 12:1 5 PM V/STOL LANDING SIGNAL OFFICER Impressions 03/17/2023 12:19 PM V/STOL LANDING SIGNAL OFFICER Negative. RECOMMENDATION: Annual Screening Mammogram ASSESSMENT: BI-RADS: 1: Negative. Narrative 03/17/2023 12:19 PM V/STOL LANDING SIGNAL OFFICER EXAM: BI BREAST SCREENING BILATERAL WITH TOMOSYNTHESIS Current study was evaluated with a Computer Aided Detection (CAD) system. INDICATION: Screening mammogram. COMPARISON: Prior exam(s) were available and reviewed for comparison. DENSITY: c. The breast(s) are heterogeneously dense, which may obscure small masses. FINDINGS: No mammographic findings of malignancy. Procedure Note Mustapha Nye M.D. - 03/17/2023 EXAM: BI BREAST SCREENING BILATERAL WITH TOMOSYNTHESIS Current study was evaluated with a Computer Aided Detection (CAD) system. INDICATION: Screening mammogram. COMPARISON: Prior exam(s) were available and reviewed for comparison. DENSITY: c. The breast(s) are heterogeneously dense, which may obscuresmall masses. FINDINGS: No mammographic findings of malignancy. IMPRESSION: Negative. RECOMMENDATION: Annual Screening Mammogram ASSESSMENT: BI-RADS: 1: Negative. Margarita Castillo P.A.-C. IMG BI PROCEDURES Final Re sult * Glucose, Fasting (01/27/2023 8:51 AM CDT) Glucose, P 82 70 - 100 mg/dL 01/27/2023 11:21 AM CDT OWAT Last Intake 14 hr 01/27/2023 10:57 AM CDT OWAT Blood (Blood, Venous) 01/27/2023 8:51 AM CDT 01/27/2023 10:55 AM CDT us Margarita Castillo P.A.-C. LAB BLOOD NON ADD-ON Final Result [facility] [address] [place] [address], [facility] [email or web address]] OWAT [facility] [address] [place] [address] * BMD Bone Density Spine Hips (12/31/2021 3:41 PM CDT) Anatomical Region Laterality Modality Hip, Lumbar Spine, Nuclear M edicine RST LOS, Musculoskeletal ARZ LOS, Muskuloskeletal FLA LOS N/A Radio graphic Imaging 12/31/2021 3:52 PM CDT Impressions 12/31/2021 3:52 PM CDT Osteoporosis AP Spine (region: L1-L4 (L3)) Narrative 12/31/2021 3:52 PM CDT EXAM: BMD BONE DENSITY SPINE HIPS Bone Mineral Density (BMD) analysis performed on [employer] with serial number [id number]. FINDINGS: Left Hip: Femur Neck: BMD = 0.760 g/cm2 T-score = -2.0 Z-score = -0.4 Total Hip: BMD = 0.743 g/cm2 T-score = -2.1 Z-score = -0.7 Right Hip: Femur Neck: BMD = 0.704 g/cm2 T-score = -2.4 Z-score = -0.8 Total Hip: BMD = 0.716 g/cm2 T-score = -2.3 Z-score = -0.9 Lumbar Spine: L1: BMD = 0.662 g/cm2 L2: BMD = 0.677 g/cm2 L4: BMD = 0.854 g/cm2 Total Lumbar Spine (L1-L4 (L3)): BMD = 0.736 g/cm2 T-score = -3.6 Z-score = -2.0 Trabecular Bone Score: L1-L4 (L3): TBS = 1.093 < 1.23: low 1.23 -1.31: borderline > 1.31: normal A low TBS has been associated with increased risk of fractures in certain populations. TBS should not be used alone to determine treatment recommendations. It can be used in conjunction with BMD and FRAX to inform management. Please note: A more comprehensive DXA report, including images and graphs, is available in [employer]. In the absence of other causes of low BMD or demonstrated skeletal fragility, osteoporosis may be diagnosed in post-menopausal women and men at or above age 50 when the T-score is at or below -2.5 as defined by the WHO. Low bone density is present at T-scores between -1 and - 2.5. The diagnosis in pre-menopausal women and men < age 50 can be based on low bone density or evidence of skeletal fragility in the appropriate clinical setting. Based on the bone density results, and on the patient's answers to the Fracture Risk Assessment questionnaire (please refer to appropriate image stored in the BMD study in [email or web address]), the calculated ten year probability of fracture is: FRAX Risk Factors: Secondary Osteoporosis FRAX (10 yr probability) adjusted for TBS Patient does not meet ISCD guidelines for FRAX calculations. (T-score) Procedure Note Alan Carrillo Jr., M.D. - 12/31/2021 EXAM: BMD BONE DENSITY SPINE HIPS Bone Mineral Density (BMD) analysis performed on [employer] withserial number [id number]. FINDINGS: Left Hip: Femur Neck: BMD = 0.760 g/cm2 T-score = -2.0 Z-score = -0.4 Total Hip: BMD = 0.743 g/cm2 T-score = -2.1 Z-score = -0.7 Right Hip: Femur Neck: BMD = 0.704 g/cm2 T-score = -2.4 Z-score = -0.8 Total Hip: BMD = 0.716 g/cm2 T-score = -2.3 Z-score = -0.9 Lumbar Spine: L1: BMD = 0.662 g/cm2 L2: BMD = 0.677 g/cm2 L4: BMD = 0.854 g/cm2 Total Lumbar Spine (L1-L4 (L3)): BMD = 0.736 g/cm2 T-score = -3.6 Z-score = -2.0 Trabecular Bone Score: L1-L4 (L3): TBS = 1.093 < 1.23: low 1.23 -1.31: borderline > 1.31: normal A low TBS has been associated with increased risk of fractures in certainpopulations. TBS should not be used alone to determine treatment recommendations. It can be usedin conjunction with BMD and FRAX to inform management. Please note: A more comprehensive DXA report, including images and graphs,is available in [employer]READS. In the absence of other causes of low BMD or demonstrated skeletalfragility, osteoporosis may be diagnosed in post-menopausal women and men at or above age 50 when theT-score is at or below -2.5 as defined by the WHO. Low bone density is present at T-scores between -1and - 2.5. The diagnosis in pre-menopausal women and men < age 50 can be based on low bone density orevidence of skeletal fragility in the appropriate clinical setting. Based on the bone density results, and on the patient's answers to theFracture Risk Assessment questionnaire (please refer to appropriate image stored in the BMD studyin QREADS), the calculated ten year probability of fracture is: FRAX Risk Factors: Secondary Osteoporosis FRAX (10 yr probability) adjusted for TBS Patient does not meet ISCD guidelines for FRAX calculations. (T-score) IMPRESSION: Osteoporosis AP Spine (region: L1-L4 (L3)) Margarita Castillo P.A.-C. IM DXA PROCEDURES Final R esult from Last 3 Months or Most Recently Relevant to Health Maintenance Insurance [facility]IC[facility] Care Teams Puncher And Fastener Relationship Specialty Start Date End Date Margarita Castillo P.A.-C. [address] [place] [phone] PCP - General Family Medicine 01/26/21
--- OUTSIDE RECORDS SUMMARY | 2024-04-19 09:48 | XMS_ITS ---
Author Organization [facility] Address [address] [place] [address] Care Team Providers Care Icu Staff Nurse Name Role Phone Unavailable Unavailable Unavailable Surgery Details Not on file Complications Check Surgery Details section. Procedure Estimated Blood Loss Check Surgery Details section. Procedure Findings Check Surgery Details section. Procedure Specimens Taken Check Surgery Details section.
--- OUTSIDE RECORDS SUMMARY | 2024-04-19 09:48 | XMS_ITS | Referral Summary ---
Author Organization [facility] Address [address] [place] [address] Care Team Providers Care Sales Ambassador Name Role Phone Margartia Castillo P.A.-C. Primary Care Provider [phone] Source Comments Patient records contain information from all sites at [facility]. For routine questions regarding patient records, call [phone] during business hours, M-F 8:00 AM - 5:00 PM Central Time. Record requests for emergency care only can be directed to [phone] at any time.[facility] Encounters Date Type Department Care Team Description 04/17/2024 Orders Only [facility] PCP [facility] MNMargarita Curiel, P.A.-C. Screening Mammogram Breast Cancer from Last 3 Months Allergies Active Allergy Reactions Criticality Noted Date [...] Risk Occupational Noise 08/23/2013 Overview (10/24/2017): Overview: [facility] 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 Resolved Problems Problem Noted Date Diagnosed Date Resolved Date Appendicitis 07/23/2016 10/24/2017 Immunizations Name Administration Dates Next Due Influenza, Quadrivalent, Adj uvanted, Preservative Free 07/13/2022 Pneumococcal, Unspecified 10/14/2022(Deferred: P atient decision) RZV (SHINGRIX) 10/14/2022(Deferred: Patient dec tatianaon) SARS-COV-2 (COVID-19) - PFIZ ER BIVALENT TS(Discontinued)(12 YEARS OR OLDER) 10/14/2022(Deferred: Patient decision) Td (Adult), adsorbed 01/18/1989 Tdap 10/14/2022(Deferred: Patient decision),02/16/2008 Social History Tobacco Use Types Packs/Day Years [...] week 08/02/2020 How often do you attend [facility] or uatsdin services? 1 to 4 times per year 08/02/2020 Do you belong to any clubs o r organizations such as cheondoism groups, unions, fraternal or athletic groups, or [...] Answer Date Recorded PHQ-2 Score 0 07/12/2022 [facility] [place] [facility] Occupat ional [facility] - Occupational Stress [...] your living situation today? I have a [facility] place to live 09/29/2022 Education Answer Date Recorded What is the highest level of school you have completed or the highest degree you have received? Associate degree: occupational, technical, or vocational program 11/10/2018 Comments No Sex and Gender Information Value Date Recorded Sex Assigned at Female 03/17/2017 12:42 PM CORPORATE TRAVEL COORDINATOR Legal Sex Female 9:11 PM CORPORATE TRAVEL COORDINATOR Gender Identity Female 03/17/2017 12:42 PM CORPORATE TRAVEL COORDINATOR Sexual Orientation Straight 03/17/2017 12 :42 PM CORPORATE TRAVEL COORDINATOR Last Filed Vital Signs Vital Sign Reading Time Taken Comments Blood Pressure 139/81 10/14/2022 1:41 PM CDT Pulse 75 10/14/2022 1:41 PM CDT Temperature 35.8 C (96.5 F) 10/14/2022 1:41 PM CDT Respiratory Rate 18 10/14/2022 1:41 PM CDT Oxygen Saturation 100% 02/17/2021 3:31 PM CORPORATE TRAVEL COORDINATOR Inhaled Oxygen Concentration - - Weight 78.8 kg (173 lb 9.8 oz) 10/14/2022 1:41 P M CDT Height 167.5 cm (5' 5.95) 10/14/2022 1:41 PM CD T Body Mass Index 28.07 10/14/2022 1:41 PM CDT Plan of Treatment Not on file Medical Devices Implanted Type Area Linux Unix Engineer Device Identifier Shelf Expiration Date Model / Serial / Lot Hardware E.G. Pins/Screws/Dmitry s-10/13/2008 Implanted:10/13 (Quantity not on file) Hardware e.g. pins/screws /rods Right: Tibia Description:C TREAT TIBIAL S HAFT FX, INTRAMED IMPLANT Uretex Sling - [place] [id number] Implanted:Qty: 1 on 08/08/2006 Mesh or Patch Other/Legacy - See Implant Description Description:Device Manufactu [facility] Care Division. Body Location - Other. Not Applicable. Device Status Text - [id number]. Bead Block Microsphere 500-700 - [place] [id number] Implanted:Qty: 4 on 08/09/2006 Vascular Other Terum[employer] Medical Description:Device Manufactu rer - [employer]. Device Status Text - [id number]. Procedures Procedure Name Priority Date/Time Associated Diagnosis Comments BI BREAST SCREENING BILATERAL WITH TOMOSYNTHESIS RAD - Routine (most inpatients and all outpatients) 03/17/2023 11:46 AM CORPORATE TRAVEL COORDINATOR Screening Mammogram Breast Cancer GLUCOSE, FASTING, S/P Routine 01/27/2023 8:51 AM CDT Screening Examination Diabetes Mellitus BMD BONE DENSITY SPINE HIPS RAD - Routine (most inpatients and all outpatients) 12/31/2021 3:41 PM CDT Deficiency Estrogen Post Menopausal COLONOSCOPY Routine 02/17/2021 2:09 PM CORPORATE TRAVEL COORDINATOR Screening Cancer Colon from Last 3 Months or Most Recently Relevant to Health Maintenance Results * BI Breast Screening Bilateral with Tomosynthesis (03/17/2023 11:46 AM CORPORATE TRAVEL COORDINATOR) Anatomical Region Laterality Modality Breast, Breast Imaging RST L OS, Breast Imaging ARZ LOS, Breast Imaging FLA LOS Bilateral Mammography 03/17/2023 12:1 5 PM CORPORATE TRAVEL COORDINATOR Impressions 03/17/2023 12:19 PM CORPORATE TRAVEL COORDINATOR Negative. RECOMMENDATION: Annual Screening Mammogram ASSESSMENT: BI-RADS: 1: Negative. Narrative 03/17/2023 12:19 PM CORPORATE TRAVEL COORDINATOR EXAM: BI BREAST SCREENING BILATERAL WITH TOMOSYNTHESIS [...] P.A.-C. LAB BLOOD NON ADD-ON Final Result [facility] [address] [place] [address], [facility] [place] [address] [place] [address] * BMD Bone Density Spine Hips (12/31/2021 [...] Bone Mineral Density (BMD) analysis performed on ShareTracker with serial number [id number]. FINDINGS: Left Hip: Femur Neck: BMD = [...] including images and graphs, is available in [employer]. In the absence of other causes of [...] image stored in the BMD study in [employer]), the calculated ten year probability of fracture is: FRAX Risk Factors: Secondary Osteoporosis FRAX (10 yr probability) adjusted for TBS Patient does not meet ISCD guidelines for FRAX calculations. (T-score) Procedure Note Alan Carrillo Jr., M.D. - 12/31/2021 EXAM: BMD BONE DENSITY SPINE HIPS Bone Mineral Density (BMD) analysis performed on ShareTracker withserial number [id number]. FINDINGS: Left Hip: Femur Neck: BMD = [...] Spine (region: L1-L4 (L3)) Margarita Castillo P.A.-C. IMG DXA PROCEDURES Final R esult from Last 3 Months or Most Recently Relevant to Health Maintenance Insurance [facility] MEDIC[facility] Care Teams Sales Ambassador Relationship Specialty Start Date End Date Margarita Castillo P.A.-C. [address] [place] [address] PCP - General Family Medicine 01/26/21
[2024-04-19] MEDS: LACTATED RINGERS 1000 ML 1,000 ML 100 ML IV (11:30)
[2024-04-19] MEDS: SODIUM CHLORIDE 0.9 % (FLUSH) 10 ML SYRINGE IVF (11:45)
[2024-04-19] MEDS: ACETAMINOPHEN 500 MG TABLET 1000 MG PO ×2 (12:50→19:42)
[2024-04-19] MEDS: CELECOXIB 200 MG CAPSULE PO (12:50)
[2024-04-19] MEDS: OXYCODONE (CR) 10 MG TAB.ER.12H PO (12:50)
[2024-04-19] MEDS: MIDAZOLAM HCL 1 MG/ML inj IVP (13:00)
[2024-04-19] MEDS: fentaNYL 100 MCG/2 ML inj IVP (13:00)
--- NOTE | 2024-04-19 13:09 | SUR.PREOP ---
TIME?OUT:?1257, left shoulder PT/RN/MDA?VERIFICATION?OF?SURGICAL?SITE,?PROCEDURE,?AND?CONSENT OBTAINED?PRIOR?TO?INVASIVE?PROCEDURE.
[2024-04-19] MEDS: CEFAZOLIN 2 GM INJ IVP (13:36)
[2024-04-19] MEDS: TRANEXAMIC ACID 100 MG/ML INJ 1000 MG IV (13:36)
--- NOTE | 2024-04-19 15:01 | P.IMCN_ITS ---
Date of Consult Consult date: 04/19/24 Primary Care Provider: Yadira Larios, Consult Narrative Narrative: Geni Lr is a 68 year old female with PMHx of Ulcerative colitis (HC), GERD, osteoporosis, Claustrophobia, PONV (postoperative nausea and vomiting) RLS (restless legs syndrome), Hx of Skin SCC of LE, Stress incontinence and hx of Left shoulder displaced 2 part proximal humerus fracture who underwent Left upper extremity reverse shoulder arthroplasty, biceps tenodesis today 04/19. Pt has history of colitis and is taking Entyvio (vedolizumab) infusions every 2 weeks. Her 2nd infusion was scheduled for this Tuesday (04/20). Geni is asking if we can provide this while in our Hospital. A note from her Director Of Managed Care, Dr. Spain, on 04/17/24 explains [he] agrees with trying to work Entyvio infusion a few days postoperatively and then before she travels to [place] in 4 weeks. It is important for the patient to get loading doses of Entyvio before traveling. Entyvio works locally in the colon cells and has a less overall immunosuppression effect on the body. Regarding Entyvio, her told her that these infusions are usually postponed or done shortly after surgery due to the risk of immunosuppression and infection and complications with surgical intervention. Patient is traveling to [place] on 05/24/24 and will be gone x 1 month. Pt takes vedolizumab (Entyvio) 300 mg IV Q2W, last time given was on 04/06/2024, next infusion will be delayed till Apr 24. [facility] Medical History (Updated 04/19/24 @ 18:16 by Georgie Rankin MD) Stress incontinence ?N39.3 - Stress incontinence (female) (male) (ICD-10) PONV (postoperative nausea and vomiting) ?R11.2 - Nausea with vomiting, unspecified (ICD-10) ?Z98.890 - Other specified postprocedural states (ICD-10) Restless leg syndrome ?G25.81 - Restless legs syndrome (ICD-10) Occupational exposure to noise ?Z57.0 - Occupational exposure to noise (ICD-10) Claustrophobia ?F40.240 - Claustrophobia (ICD-10) Female bladder prolapse ?N81.10 - Cystocele, unspecified (ICD-10) Displaced fracture of left humerus ?S42.302A - Unspecified fracture of shaft of humerus, left arm, initial encounter for closed fracture (ICD-10) Age-related osteoporosis without current pathological fracture ?M81.0 - Age-related osteoporosis without current pathological fracture (ICD- 10) Gastroesophageal reflux disease ?K21.9 - Gastro-esophageal reflux disease without esophagitis (ICD-10) Ulcerative colitis ?K51.90 - Ulcerative colitis, unspecified, without complications (ICD-10) Chronic ulcerative rectosigmoiditis ?K51.30 - Ulcerative (chronic) rectosigmoiditis without complications (ICD- 10) History of adenomatous polyp of colon ?Z86.0101 - Personal history of adenomatous and serrated colon polyps (ICD- 10) Squamous cell carcinoma of skin of left lower extremity ?C44.729 - Squamous cell carcinoma of skin of left lower limb, including hip (ICD-10) Skin cancer ?C44.90 - Unspecified malignant neoplasm of skin, unspecified (ICD-10) Surgical History (Updated 04/17/24 @ 11:05 by Sasha Velasquez ~ PUBLIC HEALTH TEACHER, PUBLIC HEALTH TEACHER) H/O vaginal hysterectomy ?Z90.710 - Acquired absence of both cervix and uterus (ICD-10) Hx of tonsillectomy ?Z90.89 - Acquired absence of other organs (ICD-10) Status post dissection of cervical lymph nodes ?Z98.890 - Other specified postprocedural states (ICD-10) History of pubovaginal sling ?Z96.0 - Presence of urogenital implants (ICD-10) History of surgery on lower extremity ?Z98.890 - Other specified postprocedural states (ICD-10) Hx of appendectomy ?Z90.49 - Acquired absence of other specified parts of digestive tract (ICD- 10) H/O local excision of skin lesion ?Z98.890 - Other specified postprocedural states (ICD-10) History of bunionectomy ?Z98.890 - Other specified postprocedural states (ICD-10) Social History What is your current living situation?: I presently have a place to live Problems where you live: no known problems In the past 12 months, utilities in danger of being shut off: no In past 12 months, lack of transportation kept you from medical appts, meetings, work, or getting things needed for daily living: no In the past 12 mos, have been you worried that your food would run out before you had money to buy more?: never true In the past 12 mos, the food you bought just didn't last and you didn't have money to buy more?: never true Smoking Status: Former smoker What tobacco products do you use: cigarettes Smoking quit date/years: >15 years ago How often do you have a drink containing alcohol: 2-3 times a week How many standard drinks containing alcohol do you have on a typical day: 1 or 2 How often do you have six or more drinks on one occasion: Never AUDIT-C Alcohol total score: 3 Non-prescribed substance use: denies use Caffeine: Yes Meds Home Medications and Allergies Home Medications ?Medication ?Instructions ?Recorded ?Confirmed ?Type acetaminophen 500 mg tablet 1,000 mg PO TID PRN 04/17/24 04/19/24 History budesonide 3 mg 9 mg PO QAM 04/17/24 04/19/24 History capsule,delayed,extended release cholecalciferol (vitamin D3) 50 50 mcg PO DAILY 04/17/24 04/19/24 History mcg (2,000 unit) capsule hydroxyzine pamoate 25 mg capsule 25 mg PO Q4H PRN pain/nausea 04/17/24 04/19/24 History ibuprofen 200 mg tablet 600 mg PO TID PRN 04/17/24 04/19/24 History pantoprazole 40 mg tablet,delayed 40 mg PO DAILY 04/17/24 04/19/24 History release tramadol 50 mg tablet 50 - 100 mg PO TID PRN pain 04/17/24 04/19/24 History vedolizumab 300 mg intravenous 300 mg IV Q2W 04/17/24 04/18/24 History solution (Entyvio) Allergies Allergy/AdvReac Type Severity Reaction Status Date / Time indomethacin Allergy Vertigo Verified 04/18/24 08:32 mesalamine Allergy Angioedema Verified 04/18/24 08:32 Exam Narrative: Exam Narrative: Physical exam GENERAL: Comfortable, no acute distress. HEAD AND NECK: Atraumatic, normocephalic CARDIOVASCULAR: RRR. Normal S1, S2. No murmurs. RESPIRATORY: Clear to auscultation B/L. Good air entry B/L. No wheezes or rhonchi. NEUROLOGY: Alert, awake, oriented X 3. Normal speech. -MSK: Lt shoulder sling PSYCH: Normal mood, normal affect. Const: Vital Signs, click to edit/add: Vital Signs - 24 hr 04/19/24 10:30 04/19/24 13:00 04/19/24 13:05 Temperature 98.2 F Pulse Rate 70 68 55 L Respiratory Rate 20 20 16 Blood Pressure 132/70 130/70 98/61 Pulse Oximetry 96 97 98 Oxygen Delivery Me thod Room Air Nasal Cannula Nasal Cannula Oxygen Flow Rate 3 3 04/19/24 13:10 Temperature Pulse Rate 58 L Respiratory Rate 16 Blood Pressure 97/57 L Pulse Oximetry 98 Oxygen Delivery Me thod Nasal Cannula Oxygen Flow Rate 3 Assessment and Plan Assessment and plan (1) Displaced fracture of left humerus: Problem comment: -DOI: 04/08/24. -S/P Left upper extremity reverse shoulder arthroplasty, biceps tenodesis today 04/19. -Start early ambulation with physical therapy. -Monitor for urine output postoperatively, bladder scan if needed. -Encourage incentive spirometry. -her sling will be used for 6 weeks postoperatively. -No active range of motion of the shoulder will be allowed for 6 weeks. -No external rotation greater than 0? for 6 weeks postoperatively. -pt can use her hand as tolerates, with her elbow at the side. Status: Acute (2) Ulcerative colitis: Problem comment: -On vedolizumab (Entyvio) 300 mg IV Q2W and daily budesonide 9 mg PO. -Her 2nd infusion was scheduled for this Tuesday (04/20). Geni is asking if we can provide this while in our Hospital. A note from her Director Of Managed Care, Dr. Spain, on 04/17/24 explains [he] agrees with trying to work Entyvio infusion a few days postoperatively and then before she travels to [place] in 4 weeks. It is important for the patient to get loading doses of Entyvio before traveling. Entyvio works locally in the colon cells and has a less overall immunosuppression effect on the body. Regarding Entyvio, her told her that these infusions are usually postponed or done shortly after surgery due to the risk of immunosuppression and infection and complications with surgical intervention. -last time given was on 04/06/2024, next infusion will be delayed till Apr 24. Status: Acute (3) Gastroesophageal reflux disease: Problem comment: -on PPI -Will resume PPI. Status: Acute (4) Restless leg syndrome: Status: Acute (5) Age-related osteoporosis without current pathological fracture: Status: Acute (6) PONV (postoperative nausea and vomiting): Status: Acute (7) Stress incontinence: Status: Acute Total Time Spent Total Time Spent: Time spent: Today I spent 75 minutes seeing the patient, discussing the patient with ER staff, reviewing Expanse and EPIC notes/diagnostics, discussing the care plan with our care time that includes social work, PT/OT, pharmacy, RT, fdc and documenting my impressions and plan in the medical record.
--- NOTE | 2024-04-19 15:27 | W.PM.NB ---
Nerve Block Nerve Block Time Seen by Provider: 13:00 Date Seen: 04/19/24 Type of block requested by surgeon for post-operative analgesia: supraclavicular Side: left Time out performed: Yes Verification of patient name: Yes Verification of date of : Yes Site marking: site marked Name of person performing procedure: Doc Continuous monitoring Was continuous monitoring of O2 sat, B/P, monitoring manager, recorded every 15 minutes?: Yes Procedure Checklist: sterile prep, needles and gloves Ultrasound guided. Images saved: Yes Medications given in 5ml increments after negative aspiration: Ropivicaine %: 0.5 mL: 20 Needle gauge: 22 Precedex (mcg): 25 Patient tolerated procedure well: Yes Block Charges Block Charge (with Pro Fee): Brachial Plexus Use of Ultrasound Machine for Block: Yes- US Guidance/pain block
--- NOTE | 2024-04-19 15:28 | P.ANES_ITS ---
Anesthesia Charges Start Date/Time Anesthesia Start Date: 04/19/24 Anesthesia Start Time: 13:27 Stop Date/Time Anesthesia Stop Date: 04/19/24 Anesthesia Stop Time: 15:50 Summary Extremes of Age - Over 70 or under 1: MDA Coding CPT Codes CPT Codes: ANESTH SHOULDER REPLACEMENT - 73467 ([id number]) P2 - PATIENT W/MILD SYST DISEASE, QK - TRANSFER KNITTER 2-4 CNCRNT ANES PROC, QX - RAIL FLAW DETECTOR OPERATOR SVC W/ MD MED DIRECTION Additional Codes: Summary - Extremes of Age - Over 70 or under 1: MDA ([id number])
--- NOTE | 2024-04-19 15:28 | W.ANESCHARGE ---
Anesthesia Charges Start Date/Time Anesthesia Start Date: 04/19/24 Anesthesia Start Time: 13:27 Stop Date/Time Anesthesia Stop Date: 04/19/24 Anesthesia Stop Time: 15:50 Summary Extremes of Age - Over 70 or under 1: MDA Coding CPT Codes CPT Codes: ANESTH SHOULDER REPLACEMENT - 46626 ([id number]) P2 - PATIENT W/MILD SYST DISEASE, QK - SHIATSU THERAPIST 2-4 CNCRNT ANES PROC, QX - PHLEBOTOMY MANAGER SVC W/ MD MED DIRECTION Additional Codes: Summary - Extremes of Age - Over 70 or under 1: MDA ([id number])
--- NOTE | 2024-04-19 15:32 | CRLHL7_ITS ---
For Patients: As a result of the Century Cures Act, medical imaging exams and procedure reports are released immediately into your electronic medical record. You may view this report before your referring provider. If you have questions, please contact your health care provider. Indication: Post op RSA Technique: Two views left shoulder Findings/Impression: Hardware from a left reverse total shoulder arthroplasty is in satisfactory position. Bone alignment is normal. Chronic changes to the lateral proximal humerus. Dictated by Vinay Ku MD @ 04/20/2024 12:20:13 PM (Electronically Signed)
--- NOTE | 2024-04-19 15:44 | P.ORPRC_ITS ---
Procedure Note Date of procedure: 04/19/24 Procedure: PREOPERATIVE DIAGNOSIS: Left shoulder displaced 2 part proximal humerus fracture POSTOPERATIVE DIAGNOSIS: Left shoulder displaced 2 part proximal humerus fracture NAME OF OPERATION: Left upper extremity reverse shoulder arthroplasty, biceps tenodesis SURGEON: Chris Nava MD EMAIL MARKETING PROCESSOR: JENNIFER Pearson] ANESTHESIA: General endotracheal ESTIMATED BLOOD LOSS: 100 mL COMPLICATIONS: None SPECIMENS: None DRAINS: None PREOPERATIVE ANTIBIOTICS: Ancef 2 grams IMPLANTS: 1. Tornier 25mm x 35 mm +3 lateralized baseplate 2. 36mm standard glenosphere 3. 13 Perform humeral fracture stem 4. 36mm polyethylene INDICATIONS: The patient is a 68-year-old who fell sustaining a 100% displaced 2 part proximal humerus fracture. Operative intervention was recommended. The risks, benefits and expected outcomes were discussed in detail. These included but were not limited to: Infection, bleeding, injury to blood vessel or nerve, venous thromboembolism. All questions were answered to their satisfaction. Use of an benefits assistant was necessary throughout the case for patient positioning and safety, soft tissue retraction, and closure. PROCEDURE: General anesthesia was administered. The patient was placed in the lazy beach chair position on the operating room table. The left upper extremity was prepped and draped in the usual sterile fashion. A standard deltopectoral incision was made. Subcutaneous dissection was taken with electrocautery to the deltopectoral interval. The cephalic vein was mobilized, lateral branches were cauterized. The vein was taken medially with the pectoralis. We bluntly entered the deltopectoral interval. We freed up the deltoid. The upper 1/3 of the insertion of the pectoralis was divided with cautery. The static retractor was placed. The clavipectoral fascia and CA ligament were divided. The circumflex vessels were controlled with electrocautery. The biceps was dissected out of the bicipital groove, was tagged with a #2 FiberWire suture and divided proximally. The saw was placed down the bicipital groove, bisecting the humeral head. The lesser tuberosity was taken off of the head and the anterior head fragment removed. The greater tuberosity was taken off of the head in the posterior head fragment was removed. Attention was then turned to the glenoid. Hohmann retractors were placed posteriorly. The labrum and biceps stump were sharply debrided. The origin of the inferior glenohumeral ligaments were subperiosteally released off of the glenoid. The drill guide was placed. The guide pin was placed in 0? of cephalic tilt. The reamer was used to bleeding bone. The central drill was used x2. The tap was used. The standard base plate was placed. This had excellent purchase. Locking screws x 2 were placed. The glenosphere was placed, the set screw was tightened. Attention was then returned to the humerus. Broaches were used until rotational stability, with 20? of retroversion. Trial components were placed. The shoulder was reduced and found to be stable, with appropriate soft tissue tension. Trial humeral components were removed. A bone graft from the humeral head was fashion and placed in the central aspect of the stem. The stem was then placed in the canal, in 20? of retroversion. This had excellent stability. The polyethylene was impacted into the humeral component. The shoulder was reduced and was found to be stable, with appropriate soft tissue tension. Two # 2 FiberWire sutures were placed in the greater and lesser tuberosities. These were tied through drill holes in the humeral metaphysis. The rotator interval was closed with a # 2 FiberWire suture x2. The biceps was tenodesed in the sub pec position to local soft tissues. We did a 3 min dilute Betadine solution soak. We irrigated the wound with 3 L of normal saline via pulse lavage. We repaired the subscapularis to the lesser tuberosity with our previously placed FiberWire sutures. The deltopectoral interval was loosely reapproximated with an 0 Vicryl in an interrupted [id number] fashion. Subcutaneous tissues were closed with the 2-0 Vicryl and a running 3-0 Monocryl suture. The skin was sealed with glue. A dry dressing and sling were applied. Sponge and needle counts were correct x2. The patient tolerated the procedure well, there were no apparent complications. They were awakened and extubated in the operating room, taken to the postanesthesia care unit in satisfactory condition. PLAN: The patient will be mobilized with physical therapy. The sling will be used for 6 weeks postoperatively. No active range of motion of the shoulder will be allowed for 6 weeks. No external rotation greater than 0? for 6 weeks postoperatively. She can use her hand as tolerates, with her elbow at the side. She will be discharged to home once medically appropriate.
--- NOTE | 2024-04-19 15:56 | P.ANES_ITS ---
Anesthesia Charges Start Date/Time Anesthesia Start Date: 04/19/24 Anesthesia Start Time: 13:27 Stop Date/Time Anesthesia Stop Date: 04/19/24 Anesthesia Stop Time: 15:50 Coding CPT Codes CPT Codes: ANESTH SHOULDER REPLACEMENT - 75473 ([id number]) P3 - PATIENT W/SEVERE SYS DISEASE, QK - ATMOSPHERIC PHYSICS PROFESSOR 2-4 CNCRNT ANES PROC, QX - SCIENTIFIC ADVISOR SVC W/ MD MED DIRECTION
--- NOTE | 2024-04-19 15:56 | W.ANESCHARGE ---
Anesthesia Charges Start Date/Time Anesthesia Start Date: 04/19/24 Anesthesia Start Time: 13:27 Stop Date/Time Anesthesia Stop Date: 04/19/24 Anesthesia Stop Time: 15:50 Coding CPT Codes CPT Codes: ANESTH SHOULDER REPLACEMENT - 05589 ([id number]) P3 - PATIENT W/SEVERE SYS DISEASE, QK - [employer] 2-4 CNCRNT ANES PROC, QX - BICYCLE MESSENGER SVC W/ MD MED DIRECTION
[2024-04-19] MEDS: CEFAZOLIN 2 GM in 0.9 % SODIUM CHLORIDE Mini-bag 100 ML IVPB (19:42)
[2024-04-19] MEDS: OXYCODONE 5 MG TABLET PO (19:42)
[2024-04-19] MEDS: LACTATED RINGERS 1000 ML 1,000 ML 75 ML IV (19:49)
[2024-04-19] MEDS: SENNOSIDES 1 TAB TABLET 2 TAB PO (22:49)
[2024-04-20] MEDS: ACETAMINOPHEN 500 MG TABLET 1000 MG PO ×3 (02:37→12:58)
[2024-04-20] MEDS: OXYCODONE 5 MG TABLET PO ×5 (02:38→12:58)
[2024-04-20 02:39] VITALS: BP 119/63; PULSE 70; RESP 16; TEMP 36.4; O2SAT 95
[2024-04-20] MEDS: CEFAZOLIN 2 GM in 0.9 % SODIUM CHLORIDE Mini-bag 100 ML IVPB (05:23)
[2024-04-20] MEDS: hydrOXYzine pamoate 25 MG CAPSULE PO ×2 (06:35→11:27)
[2024-04-20 06:49] LABS: Hematocrit 57.3 % (33.0-51.0); Mean Corpuscular HGB Conc 33 gm/dL (32-36); Mean Corpuscular Hemoglobin 30 pg (26-34); Mean Corpuscular Volume 91 fL (80-100); Platelet Count* 85 K/uL (140-440); Red Blood Count 6.28 m/uL (4.00-5.20); White Blood Count* 4.28 K/uL (4.50-11.00)
[2024-04-20 06:52] LABS: Slide Review Reflex No
[2024-04-20 06:55] LABS: Potassium* 4.1 mmol/L (3.6-5.1); Sodium* 134 mmol/L (135-149)
[2024-04-20 06:58] LABS: Blood Urea Nitrogen* 19 mg/dL (7-30); Creatinine* 0.6 mg/dL (0.5-1.5); Estimated Glomerular Filt Rate 97 ml/min
[2024-04-20 07:00] VITALS: BP 128/67; PULSE 76; RESP 16; TEMP 36.6; O2SAT 95
--- NOTE | 2024-04-20 07:26 | PC.NURSE ---
VSS on RA, reported mild-moderate pain throughout the night. See PRN medication administration in JUN. L shoulder dressing is CDI, sling is in place. Ice pack applied, SBA to BR. Voiding, although small amounts at a time. Not reports of N/V. Jo MOODY BSN
[2024-04-20 08:23] LABS: Hemoglobin* 10.6 gm/dL (12.0-16.0)
[2024-04-20] MEDS: SENNOSIDES 1 TAB TABLET 2 TAB PO (09:15)
[2024-04-20] MEDS: HYDROmorphone 0.5 mg/0.5 ml inj IVP ×2 (09:15→11:33)
[2024-04-20] MEDS: OMEPRAZOLE 20 MG CAPSULE DR 40 MG PO (09:15)
--- NOTE | 2024-04-20 09:42 | PM.ORPN ---
Subjective Subjective Time Seen by Provider: 07:50 Date Seen: 04/20/24 Principal diagnosis: S/P left upper extremity RSA, biceps tenodesis after proximal humerus frac Interval history: Geni ha is having posterior shoulder pain this morning. Ortho Exam Narrative Exam Narrative: Alert and oriented x3. Patient is in no acute distress. Converses without labored breathing. Hearing is grossly intact. Ambulates with a normal gait. She was in the recliner, tried moving to the bed for comfort, however still has significant shoulder pain. She has full range of motion and sensation in her left hand, ecchymosis is present about the left upper extremity. Edema is present. Dressing is intact. No warmth or sign of infection. Const Vital Signs, click to edit/add: Vital Signs - 24 hr 04/19/24 10:30 04/19/24 13:00 04/19/24 13:05 Temperature 98.2 F Pulse Rate 70 68 55 L Pulse Rate [Left Pulse Oximeter] Respiratory Rate 20 20 16 Blood Pressure 132/70 130/70 98/61 Blood Pressure [Right Arm] Pulse Oximetry 96 97 98 Oxygen Delivery Method Room Air Nasal Cannula Nasal Cannula Oxygen Flow Rate 3 3 04/19/24 13:10 04/19/24 15:50 04/19/24 15:55 Temperature 97.2 F L Pulse Rate 58 L 77 70 Pulse Rate [Left Pulse Oximeter] Respiratory Rate 16 16 17 Blood Pressure 97/57 L 123/62 115/62 Blood Pressure [Right Arm] Pulse Oximetry 98 91 91 Oxygen Delivery Method Nasal Cannula Room Air Room Air Oxygen Flow Rate 3 04/19/24 16:00 04/19/24 16:05 04/19/24 16:10 Temperature Pulse Rate 63 63 62 Pulse Rate [Left Pulse Oximeter] Respiratory Rate 15 16 19 Blood Pressure 106/55 L 107/67 99/57 L Blood Pressure [Right Arm] Pulse Oximetry 95 93 92 Oxygen Delivery Method Room Air Room Air Room Air Oxygen Flow Rate 04/19/24 16:15 04/19/24 16:20 04/19/24 16:45 Temperature 97.7 F 96.9 F L Pulse Rate 57 L 59 L 59 L Pulse Rate [Left Pulse Oximeter] Respiratory Rate 16 18 14 Blood Pressure 100/58 L 97/56 L 100/60 Blood Pressure [Right Arm] Pulse Oximetry 92 93 91 Oxygen Delivery Method Room Air Room Air Room Air Oxygen Flow Rate 04/19/24 17:00 04/19/24 17:15 04/19/24 17:30 Temperature 96.9 F L 96.7 F L 96.4 F L Pulse Rate 63 60 75 Pulse Rate [Left Pulse Oximeter] Respiratory Rate 14 16 14 Blood Pressure 106/56 L 104/60 90/56 L Blood Pressure [Right Arm] Pulse Oximetry 95 94 93 Oxygen Delivery Method Room Air Room Air Room Air Oxygen Flow Rate 04/19/24 17:43 04/19/24 17:45 04/19/24 18:15 Temperature 96.9 F L 96.9 F L 96.9 F L Pulse Rate 78 68 Pulse Rate [Left Pulse Oximeter] 59 L Respiratory Rate 14 16 16 Blood Pressure 100/51 L 100/66 Blood Pressure [Right Arm] 100/60 Pulse Oximetry 91 92 92 Oxygen Delivery Method Room Air Room Air Room Air Oxygen Flow Rate 04/19/24 18:45 04/19/24 19:45 04/19/24 20:45 Temperature 96.9 F L 96.7 F L 96.9 F L Pulse Rate 74 61 65 Pulse Rate [Left Pulse Oximeter] Respiratory Rate 16 16 16 Blood Pressure 107/54 L 106/52 L 96/61 Blood Pressure [Right Arm] Pulse Oximetry 94 92 91 Oxygen Delivery Method Room Air Room Air Room Air Oxygen Flow Rate 04/19/24 21:45 04/19/24 22:36 04/19/24 22:45 Temperature 96.9 F L 96.9 F L 96.9 F L Pulse Rate 60 63 63 Pulse Rate [Left Pulse Oximeter] Respiratory Rate 16 16 16 Blood Pressure 110/56 L 110/62 110/62 Blood Pressure [Right Arm] Pulse Oximetry 93 93 93 Oxygen Delivery Method Room Air Room Air Room Air Oxygen Flow Rate 04/19/24 23:00 04/19/24 23:00 04/19/24 23:00 Temperature 96.9 F L 97.6 F Pulse Rate 63 71 Pulse Rate [Left Pulse Oximeter] Respiratory Rate 16 17 17 Blood Pressure 110/62 103/64 Blood Pressure [Right Arm] Pulse Oximetry 93 94 94 Oxygen Delivery Method Room Air Room Air Room Air Oxygen Flow Rate 04/20/24 02:39 04/20/24 09:34 Temperature 97.5 F L Pulse Rate 70 Pulse Rate [Left Pulse Oximeter] Respiratory Rate 16 Blood Pressure 119/63 Blood Pressure [Right Arm] Pulse Oximetry 95 Oxygen Delivery Method Room Air Room Air Oxygen Flow Rate Assessment and Plan Assessment and plan (1) Status post reverse arthroplasty of left shoulder: Problem details: Date of surgery 04/19/2024, reverse shoulder arthroplasty with biceps tenodesis for left shoulder displaced 2 part proximal humerus fracture Status: Acute Assessment and Plan: Plan for discharge is to home when they meet discharge criteria. Her nurses currently getting her more pain medication. She is clearly having discomfort. Patient will wear the sling for 6 weeks post surgery. They can take it off for comfort and for exercises. Activity: no external rotation of the operative shoulder past 0? x 6 weeks. No active range of motion of the shoulder for 6 weeks. They will work on range of motion of the elbow, wrist, fingers on the operative extremity. Patient will attend outpatient physical therapy for the operative shoulder . For discharge, oxycodone and Tylenol for pain. Do not drive while on narcotic pain medication. Drive only when safe to do so, when they have normal use/function of the upper extremity, this will likely take 6 weeks. Patient will minimize and discontinue the narcotic as soon as possible. Remove dressing in 1 week. Dressing is waterproof. May shower. Surgical glue covers the wound. Do not scrub the wound. Expect swelling and bruising about the shoulder and upper extremity. Use of ice/active ice without restriction. Notify Orthopedics if swelling is excessive. notify Orthopedics with any questions or concerns. [phone] Return to Orthopedic clinic next week for a wound check Return to clinic in [address] Nava.
[2024-04-20 11:00] VITALS: BP 97/61; PULSE 76; RESP 20; TEMP 36.4; O2SAT 93
[2024-04-20] MEDS: KETOROLAC 15 MG/ML inj IVP (12:19)
[2024-04-20] MEDS: MIDAZOLAM HCL 1 MG/ML inj 2 MG IVP (13:31)
--- NOTE | 2024-04-20 13:52 | P.NB_ITS ---
Nerve Block Nerve Block Time Seen by Provider: 13:30 Date Seen: 04/20/24 Type of block requested by surgeon for post-operative analgesia: supraclavicular Side: left Time out performed: Yes Verification of patient name: Yes Verification of date of : Yes Site marking: site marked Name of person performing procedure: Migue Roach Continuous monitoring Was continuous monitoring of O2 sat, B/P, quality assurance monitor body, recorded every 15 minutes?: Yes Procedure Checklist: sterile prep, needles and gloves Ultrasound guided. Images saved: Yes Medications given in 5ml increments after negative aspiration: Ropivicaine %: 0.5 mL: 25 Needle gauge: 20 Patient tolerated procedure well: Yes Additional comments: Injected in 5ml increments after negative aspiration Block Charges Block Charge (with Pro Fee): Brachial Plexus Use of Ultrasound Machine for Block: Yes- US Guidance/pain block
[2024-04-20 15:00] VITALS: BP 110/63; PULSE 73; RESP 18; RESP 20; TEMP 36.6; O2SAT 93; O2SAT 94
--- NOTE | 2024-04-20 18:02 | PC.NURSE ---
shift note: pt states no pain at this time in lt shoulder. pt states lt arm numb. radial pulses intact bilat. cap refill to lt fingers intact. drsg to lt shoulder intact/dry. Reviewed dc instructions with pt and copies sent with pt at dc. Belongings reviewed and sent wiht pt at dc. IV dc'd intact Rt Wrist.
== END 2024-04-20 17:00 | disposition home or self-care (01) ==
LOC: OR 09:46 → MEDSURG 09:49
PROVIDERS: Internal Medicine; PCP Family Medicine; Visit Provider Orthopaedic Surgery
PROC: 0RRJ0JZ Replacement of Right Shoulder Joint with Synthetic Substitute, Open Approach (ICD-10-PCS; CPT 23472; principal; 2024-04-19 14:30)
DX: S42.292A Other displaced fracture of upper end of left humerus, initial encounter for closed fracture (principal); G89.18 Other acute postprocedural pain; K21.9 Gastro-esophageal reflux disease without esophagitis
CPT/HCPCS: 23472; 23430; 01638; 36415; 64415; 73030; 76942; 82565; 84132; 84295; 84520; 85018; 85027; 97110; 97165; 99100; A9270; C1713; C1776; J0330; J0690; J1100; J1171; J1630; J1885; J2250; J2371; J2704; J2795; J3010; J7120